=== PATIENT | female | born 1950 | race Caucasian/White ===

== ENCOUNTER 2018-12-20 14:49 | Emergency (ER) | payer OTHER ==
[~2018-12-20] VITALS: Ht 154.9 cm; Wt 58.1 kg
[2018-12-20 14:59] VITALS: BP_SYST 133
--- NOTE | 2018-12-20 15:11 | NUR ---
Patient to ER bed 5 to gown for evaluation. Side rails up. Report given to Keyona GUERRA.
--- NOTE | 2018-12-20 15:22 | NUR ---
Pt was bib by her daughter for high blood pressure and frequent urination. Pt daughter also reports that the pt attends [facility] for mental health but has not seen a [facility] NURSE for a while. No other complaints at the moment.
--- NOTE | 2018-12-20 15:24 | NUR ---
ER at bedside examining patient.
--- NOTE | 2018-12-20 15:45 | NUR ---
UA collected and sent to lab.
[2018-12-20 16:05] LABS: BILIRUBIN,URINE NEGATIVE (NEGATIVE); BLOOD, URINE NEGATIVE (NEGATIVE); CLARITY/URINE CLEAR (CLEAR); COLOR,URINE YELLOW (YELLOW); GLUCOSE,URINE NEGATIVE (NEGATIVE); KETONES,URINE NEGATIVE (NEGATIVE); LEUKOCYTE ESTERASE ,URINE TRACE (NEGATIVE); NITRITE, URINE NEGATIVE (NEGATIVE); PROTEIN URINE NEGATIVE (NEGATIVE); UROBILINOGEN,URINE 0.2 (0.2-1.0)
[2018-12-20 16:06] LABS: BASOPHILS % (AUTO) 0.1 % (0.0-2.0); EOSINOPHILS % (AUTO) 0.9 % (0.0-4.0); HEMATOCRIT 31.1 % (36-48); HEMOGLOBIN 10.2 g/dL (12.0-16.0); LYMPHOCYTES # (AUTO) 1.3 K/uL (1.0-5.5); LYMPHOCYTES % (AUTO) 36.4 % (20.5-51.5); MEAN CORPUSCULAR HEMOGLOBIN 30 pg (27-31); MEAN CORPUSCULAR HGB CONC 33 % (32-36); MEAN CORPUSCULAR VOLUME 92 fL (79.0-98.0); MONOCYTES # (AUTO) 0.3 K/uL (0.0-1.0); MONOCYTES % (AUTO) 7.9 % (1.7-9.3); NEUTROPHILS # (AUTO) 1.9 K/uL (1.8-7.7); NEUTROPHILS % (AUTO) 54.7 % (40.0-70.0); PLATELET COUNT (AUTO) 177 K/uL (130-430); RED BLOOD CELL COUNT(AUTO) 3.38 MIL/uL (4.2-6.2); RED CELL DISTRIBUTION WIDTH 15.1 % (9.0-15.0); WHITE BLOOD COUNT (AUTO) 3.6 K/uL (4.8-10.8)
[2018-12-20 16:15] LABS: BACTERIA,URINE FEW /HPF (None Seen); RBC,URINE NONE SEEN /HPF (0-3)
[2018-12-20 16:16] LABS: CALCIUM 8.7 mg/dL (8.4-11.0); CREATININE 0.56 mg/dL (0.55-1.30); POTASSIUM 3.7 mmol/L (3.5-5.1)
[2018-12-20 16:16] LABS: MUCUS,URINE None Seen /LPF (None Seen)
[2018-12-20 16:21] LABS: ALBUMIN 3.1 g/dL (3.4-4.8); TOTAL BILIRUBIN 0.3 mg/dL (0.0-1.0)
--- NOTE | 2018-12-20 16:30 | NUR ---
pt is resting comfortable. Has no complaints at the moment.
[2018-12-20 17:03] VITALS: BP_SYST 133
--- NOTE | 2018-12-20 17:03 | NUR ---
Patient given written and verbal discharge instructions and verbalizes understanding. ER MD Brown discussed with patient the results and treatment provided. Patient in stable condition. ID arm band removed. Rx of Macrobid given. Patient educated on pain management and to follow up with PMD in 2-3 days. Pain Scale 0/10 Opportunity for questions provided and answered. Medication side effect fact sheet provided.
== END 2018-12-20 17:03 | disposition home or self-care (01) ==
LOC: SED 14:49
DX: N39.0 Urinary tract infection, site not specified (principal); F41.9 Anxiety disorder, unspecified; F32.9 Major depressive disorder, single episode, unspecified; F03.90 Unspecified dementia, unspecified severity, without behavioral disturbance, psychotic disturbance, mood disturbance, and anxiety; Z88.0 Allergy status to penicillin
CPT/HCPCS: 36415; 71045; 80053; 81000-TC; 82550-TC; 83880; 84484; 85025; 87086; 93005; 99284

== ENCOUNTER 2018-12-31 19:32 | Emergency (ER) | payer OTHER ==
[~2018-12-31] VITALS: Ht 154.9 cm; Wt 56.7 kg
[2018-12-31 19:38] VITALS: BP_SYST 153
[2018-12-31 20:10] LABS: EOSINOPHILS # (AUTO) 0.1 K/uL (0.0-0.4); LYMPHOCYTES # (AUTO) 1.4 K/uL (1.0-5.5); MONOCYTES # (AUTO) 0.3 K/uL (0.0-1.0); WHITE BLOOD COUNT (AUTO) 4.3 K/uL (4.8-10.8)
[2018-12-31 20:15] LABS: BASOPHILS % (AUTO) 0.5 % (0.0-2.0); EOSINOPHILS % (AUTO) 1.6 % (0.0-4.0); HEMATOCRIT 34.6 % (36-48); HEMOGLOBIN 11.6 g/dL (12.0-16.0); LYMPHOCYTES % (AUTO) 33.2 % (20.5-51.5); MEAN CORPUSCULAR HEMOGLOBIN 31 pg (27-31); MEAN CORPUSCULAR HGB CONC 34 % (32-36); MEAN CORPUSCULAR VOLUME 92 fL (79.0-98.0); MONOCYTES % (AUTO) 7.2 % (1.7-9.3); NEUTROPHILS # (AUTO) 2.5 K/uL (1.8-7.7); NEUTROPHILS % (AUTO) 57.5 % (40.0-70.0); PLATELET COUNT (AUTO) 213 K/uL (130-430); RED BLOOD CELL COUNT(AUTO) 3.77 MIL/uL (4.2-6.2)
[2018-12-31 20:16] LABS: ANION GAP 6 (5-15); CALCIUM 9.1 mg/dL (8.4-11.0); CHLORIDE 105 mmol/L (98-107); CREATININE 0.58 mg/dL (0.55-1.30); GLUCOSE 97 mg/dL (70-99); SODIUM SERUM 143 mmol/L (136-145); UREA NITROGEN, BLOOD 12 mg/dL (8-21)
[2018-12-31 20:24] LABS: ALANINE AMINOTRANSFERASE 12 U/L (12-78); ALBUMIN 3.1 g/dL (3.4-4.8); ASPARTATE AMINOTRANSFERASE 12 U/L (10-37); TOTAL BILIRUBIN 0.3 mg/dL (0.0-1.0)
[2018-12-31 20:32] LABS: GFR AFRICAN AMERICAN 133 mL/min (>90)
[2018-12-31] MEDS ORDERED: RISP2TAB5 PO (20:46)
[2018-12-31 20:49] LABS: BILIRUBIN,URINE NEGATIVE (NEGATIVE); BLOOD, URINE NEGATIVE (NEGATIVE); CLARITY/URINE CLEAR (CLEAR); COLOR,URINE YELLOW (YELLOW); GLUCOSE,URINE NEGATIVE (NEGATIVE); KETONES,URINE NEGATIVE (NEGATIVE); LEUKOCYTE ESTERASE ,URINE TRACE (NEGATIVE); NITRITE, URINE NEGATIVE (NEGATIVE); PROTEIN URINE NEGATIVE (NEGATIVE); UROBILINOGEN,URINE 0.2 (0.2-1.0)
[2018-12-31 21:02] LABS: BACTERIA,URINE FEW /HPF (None Seen); RBC,URINE 0-3 /HPF (0-3)
[2018-12-31 21:03] LABS: MUCUS,URINE None Seen /LPF (None Seen)
[2018-12-31] MEDS ORDERED: CIPROFLOXACIN LACT 400 MG/D5W 200 ML IV ONE (21:15)
[2018-12-31] MEDS ORDERED: NACL 0.9% 1,000 ML IV ONE (21:15)
[2018-12-31 23:38] VITALS: BP_SYST 136
== END 2018-12-31 23:34 | disposition short-term general hospital (02) ==
LOC: SED 19:32
DX: R41.82 Altered mental status, unspecified (principal); F41.9 Anxiety disorder, unspecified; I10 Essential (primary) hypertension; F32.9 Major depressive disorder, single episode, unspecified; F03.90 Unspecified dementia, unspecified severity, without behavioral disturbance, psychotic disturbance, mood disturbance, and anxiety; Z88.0 Allergy status to penicillin
CPT/HCPCS: 36415; 70450; 71045; 80053; 81000; 82550; 83605; 84484; 85025; 87040; 87086; 93005; 96365; 99285; J0744; J7030

== ENCOUNTER 2020-02-29 16:25 | Inpatient (IN) | payer OTHER, SELFPAY ==
[~2020-02-29] VITALS: Ht 162.6 cm; Wt 70.8 kg
[2020-02-29 16:25] VITALS: BP_SYST 105
[~2020-02-29 16:25] MED LIST: RISP2TAB5 PO
--- NOTE | 2020-02-29 16:25 | NUR ---
Patient to ER bed 4 to gown for evaluation. Side rails up.
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
--- NOTE | 2020-02-29 16:50 | NUR ---
ER at bedside examining patient.
[2020-02-29] MEDS ORDERED: NS 500 ML IV ONE (17:00)
[2020-02-29 17:17] LABS: BASOPHILS # (AUTO) 0.1 K/uL (0.0-0.2); BASOPHILS % (AUTO) 1.4 % (0.0-2.0); EOSINOPHILS % (AUTO) 0.6 % (0.0-4.0); HEMATOCRIT 36.7 % (36-48); LYMPHOCYTES # (AUTO) 0.8 K/uL (1.0-5.5); LYMPHOCYTES % (AUTO) 15.9 % (20.5-51.5); MEAN CORPUSCULAR HEMOGLOBIN 29 pg (27-31); MEAN CORPUSCULAR HGB CONC 33 % (32-36); MEAN CORPUSCULAR VOLUME 88 fL (79.0-98.0); MONOCYTES # (AUTO) 0.3 K/uL (0.0-1.0); MONOCYTES % (AUTO) 5.1 % (1.7-9.3); PLATELET COUNT (AUTO) 195 K/uL (130-430); RED BLOOD CELL COUNT(AUTO) 4.19 MIL/uL (4.2-6.2); RED CELL DISTRIBUTION WIDTH 14.6 % (9.0-15.0); WHITE BLOOD COUNT (AUTO) 5.2 K/uL (4.8-10.8)
[2020-02-29 17:31] LABS: ALANINE AMINOTRANSFERASE 18 U/L (12-78); ALBUMIN 3.2 g/dL (3.4-4.8); ANION GAP 9 (5-15); ASPARTATE AMINOTRANSFERASE 18 U/L (10-37); CHLORIDE 105 mmol/L (98-107); CREATININE 1.07 mg/dL (0.55-1.30); GLUCOSE 124 mg/dL (70-99); POTASSIUM 3.6 mmol/L (3.5-5.1); SODIUM SERUM 141 mmol/L (136-145); TOTAL BILIRUBIN 0.4 mg/dL (0.0-1.0)
[2020-02-29 17:38] LABS: ALCOHOL, BLOOD < 3 mg/dL (<10); GFR AFRICAN AMERICAN 65 mL/min (>90)
[2020-02-29 17:39] LABS: ACETAMINOPHEN < 1 ug/mL (1-30)
[2020-02-29 17:45] LABS: UREA NITROGEN, BLOOD 25 mg/dL (8-21)
[2020-02-29] MEDS ORDERED: LORazepam 2 MG/ML VIAL IVP ONE (17:45)
[2020-02-29] MEDS ORDERED: LORazepam 2 MG/ML VIAL IM ONE (17:45)
--- NOTE | 2020-02-29 17:45 | NUR ---
Pt given Ativan 2mg, resting in gurney VSS, will continue to monitor.
--- NOTE | 2020-02-29 18:47 | NUR ---
[place] [facility] [place] no distress noted VSS
--- NOTE | 2020-02-29 19:08 | NUR ---
Patient will be admitted to care of Dr Vaughan. . Admitted to M/S unit. Will go to room 104B. Belongings list completed. Complete and up to date summary report printed. SBAR report to be given at bedside with opportunity for questions.
--- NOTE | 2020-02-29 19:10 | NUR ---
ADMISSION: The patient, JOYCE HODGES, 69 y/o, F admitted by CHRISTIANO ANTONIO MD, WITH THE DIAGNOSIS OF ENCEPHALOPATHY TO ROOM 104 B . PRIMARY RN AT BEDSIDE .
[2020-02-29 19:26] LABS: BILIRUBIN,URINE NEGATIVE (NEGATIVE); BLOOD, URINE NEGATIVE (NEGATIVE); CLARITY/URINE CLEAR (CLEAR); COLOR,URINE YELLOW (YELLOW); GLUCOSE,URINE NEGATIVE (NEGATIVE); KETONES,URINE NEGATIVE (NEGATIVE); LEUKOCYTE ESTERASE ,URINE NEGATIVE (NEGATIVE); NITRITE, URINE NEGATIVE (NEGATIVE); PH,URINE 7.5 (5.0-8.0); PROTEIN URINE NEGATIVE (NEGATIVE)
[2020-02-29 19:30] VITALS: BP_SYST 149
[2020-02-29 19:33] LABS: BARBITURATE, URINE NEGATIVE (NEG <=200); BENZODIAZEPINE, URINE POSITIVE (NEG <=150); CANNABINOID, URINE NEGATIVE (NEG <=50); COCAINE, URINE NEGATIVE (NEG <=150); METHAMPHETAMINES SCREEN,URINE NEGATIVE (NEG <=500); OPIATE, URINE NEGATIVE (NEG <=100); PHENCYCLIDINE SCREEN,URINE NEGATIVE (NEG <=25); UR TRICYCLIC ANTIDEPRESSANTS NEGATIVE (NEG <=300); URINE AMPHETAMINE NEGATIVE (NEG <=500); URINE METHADONE NEGATIVE (NEG <=200); URINE OXYCODONE SCREEN NEGATIVE (NEG <=100); URINE PROPOXYPHENE SCREEN NEGATIVE (NEG <=300)
[2020-02-29 20:00] VITALS: BP_SYST 149
[2020-02-29] MEDS: D5/0.45 NS 1,000 ML IV SCH (20:35)
--- NOTE | 2020-02-29 20:35 | NUR ---
RN ROUNDS PT RESTING IN BED, CHADIAN SPEAKING ONLY. BREATHING EVEN AND UNLABORED TO ROOM AIR. O2 SAT 95%. NO S/S OF RESPIRATORY DISTRESS NOTED. IV ON RIGHT HAND 22G INTACT, IVF RUNNING ORDERED RATE. NO SIGNS OF INFILTRATION NOTED. NO S/S OF AGITATION NOTED AT THIS TIME. CALL LIGHT WITHIN REACH. SIDE RAILS UP X3. CLOSE TO NURSING STATION. SAFETY AND FALL PRECAUTIONS ARE IN PLACE. WILL CONTINUE TO MONITOR.
--- NOTE | 2020-02-29 21:28 | NUR ---
CONSULT REASON FOR CONSULT: PSYCHOSIS PERSON I SPOKE WITH: RADHA CONSULTING PHYSICIAN: DR. BARRON UPPER CUTTER MACHINE PHONE NUMBER: [phone] ORDERING PHYSICIAN: DR. ANTONIO FACESHEET WAS FAXED OVER AT [phone]
--- NOTE | 2020-02-29 23:05 | NUR ---
RESTING PT RESTING IN BED. CHEST RISE AND FALL SYMMETRICAL. IVF RUNNING ORDERED RATE. PT TOLERATING WELL. NO S//S OF ACUTE DISTRESS NOTED. BED ALARM ON, LOCKED IN LOWEST POSITION. CALL LIGHT WITHIN REACH. SAFETY AND FALL PRECAUTIONS MAINTAINED. WILL MONITOR.
[2020-03-01] VITALS (8 sets, daily range): BP systolic 80–143
--- NOTE | 2020-03-01 01:32 | NUR ---
RN ROUNDS PT SLEEPING. BREATHING EVEN AND UNLABORED TO ROOM AIR. IV ON RIGHT HAND 22G INTACT, IVF RUNNING ORDERED RATE. NO S/S OF AGITATION NOTED. CALL LIGHT WITHIN REACH. SIDE RAILS UP X3. CLOSE TO NURSING STATION. SAFETY AND FALL PRECAUTIONS ARE IN PLACE. WILL CONTINUE TO MONITOR.
[2020-03-01 06:38] LABS: BASOPHILS % (AUTO) 0.1 % (0.0-2.0); EOSINOPHILS # (AUTO) 0.1 K/uL (0.0-0.4); EOSINOPHILS % (AUTO) 1.3 % (0.0-4.0); HEMATOCRIT 36.9 % (36-48); HEMOGLOBIN 12.1 g/dL (12.0-16.0); LYMPHOCYTES # (AUTO) 1.8 K/uL (1.0-5.5); LYMPHOCYTES % (AUTO) 40.5 % (20.5-51.5); MEAN CORPUSCULAR HEMOGLOBIN 29 pg (27-31); MEAN CORPUSCULAR HGB CONC 33 % (32-36); MEAN CORPUSCULAR VOLUME 88 fL (79.0-98.0); MONOCYTES # (AUTO) 0.3 K/uL (0.0-1.0); MONOCYTES % (AUTO) 6.5 % (1.7-9.3); NEUTROPHILS # (AUTO) 2.3 K/uL (1.8-7.7); NEUTROPHILS % (AUTO) 51.6 % (40.0-70.0); PLATELET COUNT (AUTO) 180 K/uL (130-430); RED BLOOD CELL COUNT(AUTO) 4.21 MIL/uL (4.2-6.2); RED CELL DISTRIBUTION WIDTH 15.2 % (9.0-15.0); WHITE BLOOD COUNT (AUTO) 4.5 K/uL (4.8-10.8)
--- NOTE | 2020-03-01 06:48 | NUR ---
CLOSING NOTES PT RESTING IN BED. BREATHING EVEN AND UNLABORED TO ROOM AIR. NO S/S OF RESPIRATORY DISTRESS NOTED. IV ON RIGHT HAND 22G INTACT, IVF RUNNING ORDERED RATE. NO SIGNS OF INFILTRATION NOTED. CALL LIGHT WITHIN REACH. SIDE RAILS UP X3. CLOSE TO NURSING STATION. SAFETY AND FALL PRECAUTIONS ARE IN PLACE. ALL NEEDS ARE MET THROUGHOUT SHIFT. WILL CONTINUE TO MONITOR UNTIL ENDORSE TO DAY SHIFT RN.
[2020-03-01 06:59] LABS: CALCIUM 8.4 mg/dL (8.4-11.0); CREATININE 0.66 mg/dL (0.55-1.30); POTASSIUM 3.9 mmol/L (3.5-5.1)
--- NOTE | 2020-03-01 07:26 | NUR ---
OPENING NOTE Patient resting in the bed. No acute distress. Skin warm and dry to touch. IV intact to right hand, no redness, no swelling, no drainage. On D5 1/2NS at 50ml/hr, infusing well. Safety measure maintained. Call light within reached. Bed locked in low position, side rails up, bed alarm on. Will continue to monitor.
--- NOTE | 2020-03-01 09:40 | NUR ---
ROUND Patient resting in the bed. No acute distress. IV intact, IVF infusing well. Safety measure maintained. Call light within reached. Bed locked in low position, side rails up, bed alarm on. Continue to monitor.
--- NOTE | 2020-03-01 09:58 | NUR ---
Nutrition Update Solis Scale 18 noted. Pt admitted for encephalopathy. Diet: 2 gm Na BMI: 27 kg/m2 RD to follow per nutrition care standards.
--- NOTE | 2020-03-01 11:20 | NUR ---
BEDPAN Assisted to use bedpan, void freely, no hematuria/dysuria. Patient also had BM at this time. Perineal and royal-rectal care provided. Safety measure maintained. Call light within reached. Bed locked in low position, side rails up, bed alarm on. Continue to monitor.
--- NOTE | 2020-03-01 15:08 | NUR ---
Dietitian Recommendations * Recommend continuing 2 gm Na diet * Encourage increase PO intakes LP, RD Please refer to Nutrition Assessment for details. Addendum: 03/01/20 at [address] Amended: Links added.
--- NOTE | 2020-03-01 15:35 | NUR ---
SEEN AND EXAMINED BY MARISELA MANN WITH ORDER RECEIVED.
[2020-03-01] MEDS ORDERED: risperiDONE 1 MG TABLET (RisperDAL) PO ONE (15:45)
[2020-03-01] MEDS: LORazepam 2 MG/ML VIAL IVP PRN (15:47)
--- NOTE | 2020-03-01 15:47 | NUR ---
AGITATION Patient pulled IV out and getting out of the bed and yelling want to go home. New IV inserted to right wrist, gauge 22 with good blood return. Flushed with NS 5ml. Ativan 1mg IVP given as ordered. Safety measure maintained. Bed locked in low position, side rials up, bed alarm on. Call light within reached. Continue to monitor.
[2020-03-01] MEDS ORDERED: HALOPERIDOL LACTATE 5 MG/ML VIAL IM PRN (16:00)
--- NOTE | 2020-03-01 16:05 | NUR ---
UPDATED THE CONDITION OF THE PATIENT Received call from patient's , Jeovany. Per Jeovany, patient did not take medication at home for days that make her more confused. Jeovany provided the list of home medication with the name of medication, dose, route and frequency for patient, updated in the computer. Informed to Jeovany, Agitation behavior of the patient and with the order of bilateral soft restraint, verbally understanding.
--- NOTE | 2020-03-01 16:07 | NUR ---
CONSULTATION PAGED REASON FOR CONSULTATION:CONFUSED WAS CONSULT CALLED?Y PERSON WHO WAS NOTIFIED:NICHOLE CONSULTING PHYSICIAN:YOAN VARGAS COMPOSITION MIXER SPECIALTY:PSYCH COMPOSITION MIXER PHONE NUMBER:[phone] REQUESTING PHYSICIAN:CHRISTIANO BORJAS
--- NOTE | 2020-03-01 16:09 | NUR ---
CONSULTATION PAGED REASON FOR CONSULTATION:ALOC WAS CONSULT CALLED?Y PERSON WHO WAS NOTIFIED:TEXT MESSAGED NATHALY SOLANO CONSULTING PHYSICIAN:ZARIA SOLANO HEALTHCARE SPECIALIST SPECIALTY:NEURO HEALTHCARE SPECIALIST PHONE NUMBER:[phone] REQUESTING PHYSICIAN:CHRISTIANO BORJAS
[2020-03-01] MEDS: D5/0.45 NS 1,000 ML IV SCH (16:25)
[2020-03-01] MEDS ORDERED: RIVA1PAT3 TP (16:29)
[2020-03-01] MEDS ORDERED: BENZ1TAB76 PO (16:29)
[2020-03-01] MEDS ORDERED: FAMO20TA8 PO (16:29)
[2020-03-01] MEDS ORDERED: MEMA10TA PO (16:29)
[2020-03-01] MEDS ORDERED: LIP10 PO (16:29)
[2020-03-01] MEDS ORDERED: LISI-209 PO (16:29)
--- NOTE | 2020-03-01 16:29 | NUR ---
Patient is sleepy but arousable kazakh speaking answer simple question verbalizing she wants to go home. frequent monitoring due to low blood pressure.
[2020-03-01] MEDS ORDERED: NACL 0.9% 1,000 ML IV ONE (16:30)
--- NOTE | 2020-03-01 18:50 | NUR ---
CLOSING NOTE Patient resting in the bed. No acute distress. Skin warm and dry to touch. IV intact to right wrist, no redness, no swelling, no drainage. On D5 1/2NS at 50ml/hr, infusing well. Bilateral soft wrist restraint in placed. Able to move fingers and hands without problem. All needs met. Safety measure maintained. Call light within reached. Bed locked in low position, side rails up, bed alarm on. Will endorse to night nurse.
--- NOTE | 2020-03-01 19:10 | NUR ---
OPENING NOTE PATIENT AWAKE, ESTONIAN SPEAKING. AOX2, [place], BILINGUAL BRANCH MANAGER HELP WITH THE TRANSLATION. CONFUSION IS NOTED. TRYING TO GET OUT OF THE BED. NO SIGNS OF RESPIRATORY DISTRESS NOTED. ON ROOM AIR TOLERATED WELL. VITAL SIGNS TAKEN AND WILL BE RECORDED. DENIES PAIN AND DISCOMFORT. BREATHING EVEN AND UNLABORED. ON BILATERAL SOFT WRIST RESTRAINTS, NO INJURY NOTED. IVF INFUSING WELL. PATIENT ROOM NEXT TO NURSING STATION. BED LOCKED AND IN LOWEST POSITION. BED ALARM ON. SAFETY PRECAUTIONS IN PLACE. WILL CONTINUE TO MONITOR PATIENT.
--- NOTE | 2020-03-01 19:43 | NUR ---
Initial note: received report from adrian GUERRA. Patient is awake in bed watching TV. No acute distress. Tolerating 2L NC. Respirations even, unlabored. IV fluids infusing as ordered with no infiltration noted. Bilateral soft wrist restraints in place, skin and circulation WNL. Safety, fall precautions in place. Call light with patient. Will continue with plan of care. Addendum: 03/02/20 at 2225 by Abhinav Apodaca RN disregard note, wrong date
--- NOTE | 2020-03-01 21:03 | NUR ---
RN ROUNDS PATIENT AWAKE, NO SIGNS OF RESPIRATORY DISTRESS NOTED. DENIES PAIN AND DISCOMFORT. ON 1L OF OXYGEN VIA NASAL CANULA, TOLERATING WELL. IVF INFUSING WELL. ON BILATERAL WRIST RESTRAINTS, NO INJURY NOTED. SAFETY PRECAUTIONS IN PLACE. WILL CONTINUE TO MONITOR PATIENT.
--- NOTE | 2020-03-01 21:55 | NUR ---
SPOKE WITH DR. PACO GARZA MADE AWARE OF PATIENTS' MEDICATION RECONCILIATION. ALL MEDICATION READ BACK AND CONFIRMED, VERBALIZED TO CONTINUE HOME MEDICATION
--- NOTE | 2020-03-01 23:25 | NUR ---
RN ROUNDS PATIENT ASLEEP, NO SIGNS OF RESPIRATORY DISTRESS NOTED. DENIES PAIN AND DISCOMFORT. ON 1L OF OXYGEN VIA NASAL CANULA, TOLERATING WELL. IVF INFUSING WELL. ON BILATERAL WRIST RESTRAINTS, NO INJURY NOTED. SAFETY PRECAUTIONS IN PLACE. WILL CONTINUE TO MONITOR PATIENT.
[2020-03-02] VITALS: BP_SYST 143
--- NOTE | 2020-03-02 | NUR ---
VITAL SIGNS/ELIAZAR CARE ELIAZAR CARE DONE WITH HELP OF CHI OVERTON, VITAL SIGNS TAKEN AND RECORDED. NO SIGNS OF RESPIRATORY DISTRESS NOTED. ON 1L OF OXYGEN VIA NASAL CANULA, TOLERATING WELL. IVF INFUSING WELL. ON BILATERAL WRIST RESTRAINTS, NO INJURY NOTED. NEEDS ATTENDED. SAFETY PRECAUTIONS IN PLACE. WILL CONTINUE TO MONITOR PATIENT.
--- NOTE | 2020-03-02 02:40 | NUR ---
RN ROUNDS PATIENT AWAKE, YELLING, TALKING TO HER SELF. NO SIGNS OF RESPIRATORY DISTRESS AND DISCOMFORT NOTED. BREATHING EVEN AND UNLABORED ON 1L OF OXYGEN VIA NASAL CANULA, TOLERATING WELL. ON BILATERAL SOFT WRIST RESTRAINTS, NO INJURY NOTED. CALL LIGHT WITHIN REACH. SAFETY PRECAUTIONS IN PLACE. WILL CONTINUE TO MONITOR PATIENT
[2020-03-02] MEDS: D5/0.45 NS 1,000 ML IV SCH ×2 (04:05→20:36)
[2020-03-02] MEDS: LORazepam 2 MG/ML VIAL IVP PRN (04:44)
--- NOTE | 2020-03-02 04:45 | NUR ---
AGITATION PATIENT YELLING, AND TRYING TO GET OUT OF BED. PRN MEDICATION FOR AGITATION GIVEN AT THIS TIME. PATIENT WAS EDUCATED ON MEDICATION THAT WAS GIVEN FOR ITS PURPOSE, SIDE EFFECT AND BENEFITS. PATIENT UNABLE TO VERBALIZED UNDERSTANDING, PATIENT IS CONFUSED AND TRYING TO REMOVE RESTRAINTS AND IV. PATIENT ON BILATERAL SOFT WRIST RESTRAINTS, NO INJURY NOTED. SAFETY PRECAUTIONS IN PLACE. WILL CONTINUE TO MONITOR PATIENT
--- NOTE | 2020-03-02 06:31 | NUR ---
CLOSING NOTE PATIENT ASLEEP AT THIS TIME. NO SIGNS OF RESPIRATORY DISTRESS AND DISCOMFORT NOTED. BREATHING EVEN AND UNLABORED. ON 1L OF OXYGEN VIA NASAL CANULA, TOLERATING WELL. IVF INFUSING WELL, PATENCY NOTED. ON BILATERAL SOFT WRIST RESTRAINTS, NO INJURY NOTED. BED LOCKED AND IN LOWEST POSITION. BED ALARM ON. SAFETY PRECAUTIONS IN PLACE. ALL NEEDS MET THROUGHOUT THE SHIFT. WILL CONTINUE TO MONITOR UNTIL ENDORSE TO ONCOMING SHIFT NURSE FOR CONTINUITY OF CARE.
[2020-03-02 07:04] LABS: CALCIUM 8.1 mg/dL (8.4-11.0); CREATININE 0.58 mg/dL (0.55-1.30)
--- NOTE | 2020-03-02 07:10 | NUR ---
OPENING NOTE RECEIVED BEDSIDE SBAR FROM NIGHT RN, PATIENT IN BED, EYES CLOSED, BED IN LOW AND LOCKED POSITION. CALL LIGHT WITHIN REACH, BED ALARM ON.
[2020-03-02 07:59] VITALS: BP_SYST 129
--- NOTE | 2020-03-02 08:00 | NUR ---
NURSE NOTE OBTAINED VS, PATIENT IN BED, RESPIRATIONS EVEN, NON LABORED, BED IN LOW AND LOCKED POSITION, CALL LIGHT WITHIN REACH, BED ALARM ON
[2020-03-02] MEDS: BENZTROPINE MESYLATE 1 MG TABLET PO SCH ×2 (08:54→20:31)
[2020-03-02] MEDS: FAMOTIDINE 20 MG TABLET PO SCH (08:54)
[2020-03-02] MEDS: MEMANTINE HCL 5 MG TABLET PO SCH ×2 (08:54→20:31)
[2020-03-02] MEDS: lisinopriL 5 MG TABLET PO SCH (08:55)
[2020-03-02] MEDS: risperiDONE 1 MG TABLET (RisperDAL) PO SCH (08:55)
[2020-03-02] MEDS ORDERED: RIVASTIGMINE 9.5 MG/24 HR PATCH.TD24 TP SCH (09:00)
--- NOTE | 2020-03-02 09:30 | NUR ---
NURSE NOTE PATIENT INCONTINENT OF BLADDER, PROVIDED ELIAZAR CARE, CHANGED LINENS, BED IN LOW AND LOCKED POSITION, CALL LIGHT WITHIN REACH, BED ALARM ON, RESTRAINTS ON, NO SIGNS OF INJURY, CAPILLARY REFILL LESS THAN 3 SECONDS
--- NOTE | 2020-03-02 09:50 | NUR ---
NURSE NOTE PAGED DR ANTONIO REGARDING LOW POTASSIUM 3.0
--- NOTE | 2020-03-02 09:51 | NUR ---
NURSE NOTE SPOKE WITH PHARMACY, EXELON PATCH NOT CARRIED IN PHARMACY, WILL INFORM DR ANTONIO
--- NOTE | 2020-03-02 10:40 | NUR ---
NURSE NOTE INFORMED RATOPRINTER JONG THAT EXELON IS NOT CARRIED IN THE PHARMACY, OK TO DC, INFORMED REGARDING POTASSIUM OF 3.0, WILL PLACE NEW ORDERS
[2020-03-02] MEDS ORDERED: POTASSIUM CHLORIDE 20 MEQ TAB.PRT.SR PO ONE (10:45)
--- NOTE | 2020-03-02 11:30 | NUR ---
NURSE NOTE PATIENT IN BED, RESPIRATIONS EVEN, NON LABORED, BED IN LOW AND LOCKED POSITION, CALL LIGHT WITHIN REACH, BED ALARM ON. ADMINISTERED MEDICATION, PATIENT TOLERATED WELL, NO SIGNS OF DISTRESS NOTED
[2020-03-02 12:52] VITALS: BP_SYST 104
--- NOTE | 2020-03-02 13:43 | NUR ---
NURSE NOTE PATIENT IN BED, EYES CLOSED, RESPIRATIONS EVEN, NON LABORED, BED IN LOW AND LOCKED POSITION, CALL LIGHT WITHIN REACH,
--- NOTE | 2020-03-02 15:23 | NUR ---
md rounds Dr. Weeks bedside examining patient
[2020-03-02 16:00] VITALS: BP_SYST 123
--- NOTE | 2020-03-02 16:26 | NUR ---
nurse note assisted patient with phone call to , bed in low and locked position, call light within reach, bed alarm on
--- NOTE | 2020-03-02 16:45 | NUR ---
NURSE NOTE PATIENT INCONTINENT OF BLADDER, PROVIDED ELIAZAR CARE, CHANGED LINENS, REPOSITIONED PATIENT, DENIES ANY PAIN OR DISCOMFORT
--- NOTE | 2020-03-02 19:15 | NUR ---
closing note provided sbar to night RN, patient in bed, respirations even, non labored, bed in low and locked position, call light within reach, endorsed urine specimen collection to night RN Addendum: 03/02/20 at 1917 by Keenan Rodrigues RN above urine culture charted in error, entered on wrong patient
--- NOTE | 2020-03-02 19:43 | NUR ---
Initial note: received report from adrian RN. Patient is awake in bed watching TV. No acute distress. Tolerating 2L NC. Respirations even, unlabored. IV fluids infusing as ordered with no infiltration noted. Bilateral soft wrist restraints in place, skin and circulation WNL. Safety, fall precautions in place. Call light with patient. Will continue with plan of care.
[2020-03-02 20:00] VITALS: BP_SYST 111
[2020-03-02] MEDS: ATORVASTATIN 10 MG TABLET PO SCH (20:31)
--- NOTE | 2020-03-02 22:21 | NUR ---
Rounds: Patient is awake in bed, watching TV. No acute distress. Even and unlabored breathing on 2L NC. IV fluids infusing well. Call light with patient. Will continue to monitor.
--- NOTE | 2020-03-02 22:32 | NUR ---
Restraints off: Patient has been calm, cooperative with medical care. Bilateral soft wrist restraints removed. Skin and circulation WNL. Will continue monitoring.
[2020-03-03] VITALS: BP_SYST 101
--- NOTE | 2020-03-03 01:09 | NUR ---
Rounds: Patient is asleep. No acute distress. Respirations are even, unlabored. Tolerating 2L NC. IV fluids infusing well. Call light with patient. Will continue to monitor.
--- NOTE | 2020-03-03 04:04 | NUR ---
Rounds: Patient is asleep, lying in bed. No acute distress. Even and unlabored breathing on 2L NC. IV fluids infusing well. No infiltration to IV site. Call light with patient. Will continue monitoring.
--- NOTE | 2020-03-03 06:23 | NUR ---
Closing note: Patient is resting comfortably in bed. No acute distress. Tolerating 2L NC. Respirations are even, unlabored. IV fluids infusing well, no infiltration. All needs met. Safety, fall precautions in place. Will endorse care to dayshift RN.
[2020-03-03 06:58] LABS: BASOPHILS % (AUTO) 0.1 % (0.0-2.0); EOSINOPHILS # (AUTO) 0.1 K/uL (0.0-0.4); EOSINOPHILS % (AUTO) 1.6 % (0.0-4.0); HEMATOCRIT 36.7 % (36-48); HEMOGLOBIN 12.1 g/dL (12.0-16.0); LYMPHOCYTES # (AUTO) 1.8 K/uL (1.0-5.5); LYMPHOCYTES % (AUTO) 40.7 % (20.5-51.5); MEAN CORPUSCULAR HEMOGLOBIN 29 pg (27-31); MEAN CORPUSCULAR HGB CONC 33 % (32-36); MEAN CORPUSCULAR VOLUME 89 fL (79.0-98.0); MONOCYTES # (AUTO) 0.3 K/uL (0.0-1.0); MONOCYTES % (AUTO) 6.9 % (1.7-9.3); NEUTROPHILS # (AUTO) 2.2 K/uL (1.8-7.7); NEUTROPHILS % (AUTO) 50.7 % (40.0-70.0); PLATELET COUNT (AUTO) 183 K/uL (130-430); RED BLOOD CELL COUNT(AUTO) 4.14 MIL/uL (4.2-6.2); RED CELL DISTRIBUTION WIDTH 14.9 % (9.0-15.0); WHITE BLOOD COUNT (AUTO) 4.4 K/uL (4.8-10.8)
[2020-03-03 06:59] LABS: CALCIUM 8.2 mg/dL (8.4-11.0); CREATININE 0.66 mg/dL (0.55-1.30); POTASSIUM 3.9 mmol/L (3.5-5.1)
--- NOTE | 2020-03-03 07:30 | NUR ---
PT AWAKE, NONLABORED BREATHING NOTED, RECEIVING O2 AT 2LPM VIA NASAL CANNULA, TOLERATING WELL. IV LINE INTACT AND PATENT, NO SIGNS OF INFILTRATION NOTED. NO RESTRAINTS NOTED. NO ACUTE DISTRESS NOTED. ALL NEEDS MET. CALL LIGHT IN REACH. FALL AND ASPIRATION PRECAUTIONS IN PLACE. CONTINUE TO MONITOR.
[2020-03-03 08:00] VITALS: BP_SYST 113
[2020-03-03] MEDS: FAMOTIDINE 20 MG TABLET PO SCH (09:46)
[2020-03-03] MEDS: risperiDONE 1 MG TABLET (RisperDAL) PO SCH (09:47)
[2020-03-03] MEDS: BENZTROPINE MESYLATE 1 MG TABLET PO SCH ×2 (09:47→21:48)
[2020-03-03] MEDS: lisinopriL 5 MG TABLET PO SCH (09:47)
[2020-03-03] MEDS: MEMANTINE HCL 5 MG TABLET PO SCH ×2 (09:48→21:47)
--- NOTE | 2020-03-03 09:50 | NUR ---
ROUTINE MEDS ADMINISTERED ORDERED PER MD, EDUCATION GIVEN, TOLERATED WELL. CONTINUE TO MONITOR.
[2020-03-03 11:35] VITALS: BP_SYST 125
--- NOTE | 2020-03-03 11:46 | NUR ---
ROUNDS PT AWAKE AND ALERT. PULLED OUT IV LINE, WILL RE-INSERT.
--- NOTE | 2020-03-03 13:45 | NUR ---
IV RE-INSERTION: PT PULLED IV LINE. Restarted on LEFT FOREARM. Successful after 1 attempt. Resumed current IVF of D5 1/2 NS and regulated @ 50ML per hour. Will observe for any signs of infiltration.
--- NOTE | 2020-03-03 13:51 | NUR ---
SPOKE TO DR. ANTONIO REGARDING LOW HEART RATE, NO DIZZINESS OR LETHARGY NOTED. NO NEW ORDERS RECEIVED.
[2020-03-03 15:12] VITALS: BP_SYST 130
[2020-03-03] MEDS: D5/0.45 NS 1,000 ML IV SCH (16:34)
--- NOTE | 2020-03-03 16:37 | NUR ---
IV FLUIDS ADMINISTERED ORDERED PER MD, EDUCATION GIVEN, TOLERATED WELL. CONTINUE TO MONITOR.
--- NOTE | 2020-03-03 17:02 | NUR ---
patient stated wanting to speak to , called from face sheet and transferred call from station, patient speaking to at this time.
--- NOTE | 2020-03-03 18:42 | NUR ---
CLOSING NOTES PT EATING DINNER, WATCHING TV IN BED, NONLABORED BREATHING NOTED ON ROOM AIR, TOLERATING WELL. IV LINE INTACT AND PATENT, NO SIGNS OF INFILTRATION NOTED, FLUIDS RUNNING ORDERED PER MD. PT CLEAN AND DRY. NO ACUTE DISTRESS NOTED. ALL NEEDS MET. CALL LIGHT IN REACH. FALL AND ASPIRATION PRECAUTIONS IN PLACE. WILL ENDORSE TO NOC NURSE.
--- NOTE | 2020-03-03 19:25 | NUR ---
Opening note: Received patient awake, resting in bed, no s/sx of distress and watching t.v. Non labored breathing on room air. Patient has IVF infusing via IV to LFA. Bed is locked in lowest position, and bed alarm on. Updated board and reviewed plan of care.
[2020-03-03 20:00] VITALS: BP_SYST 139
--- NOTE | 2020-03-03 20:05 | NUR ---
patient care Patient voided, requested to be changed. She was provided with royal-care, clean pad.
[2020-03-03] MEDS: ATORVASTATIN 10 MG TABLET PO SCH (21:48)
--- NOTE | 2020-03-03 21:50 | NUR ---
Meds Due meds given and patient took with apple juice. She is incontinent and requested to be cleaned and was provided w/ royal care and clean pad. Safety precautions maintained and call light w/in reach.
[2020-03-04 00:20] VITALS: BP_SYST 120
--- NOTE | 2020-03-04 00:20 | NUR ---
rounds, V/S Patient was momentarily awakened for V/S, which are stable and she denies pain. She wants t.v off and lights low. Safety precautions maintained and call light w/in reach.
--- NOTE | 2020-03-04 02:06 | NUR ---
OOB, void Patient is OOB for use of restroom; She voided; missed hat, unable to measure. She was provided with [facility] bath, new gown. Resting in bed, no s/sx of distress. Safety precautions maintained and call light w/in reach.
--- NOTE | 2020-03-04 02:18 | NUR ---
sleeping Previous note entered in wrong chart. Patient is resting w/ eyes closed, no distress and non labored breathing. IVF infusing well; safety precautions maintained. will continue to monitor. Addendum: 03/04/20 at 0223 by Kelly Gallagher RN This entry was entered in wrong chart; patient did not get up out of bed.
--- NOTE | 2020-03-04 03:05 | NUR ---
awake, voided Patient requesting to be cleaned; she voided. Provided w/ royal-care, clean pad and assisted to reposition.
--- NOTE | 2020-03-04 04:26 | NUR ---
sleeping Patient sleeping, no sign of distress, non labored breathing. IVF infusing well, call light w/in reach.
--- NOTE | 2020-03-04 05:39 | NUR ---
awake, refused SCD's Patient reports she is tired of SCD's and wants them removed. Both SCD's removed, no further needs.
--- NOTE | 2020-03-04 07:00 | NUR ---
closing note Patient is resting in bed, w/eyes closed, easily aroused. She denies pain, no distress. IVF infusing via IV to LFA. Safety precautions maintained. Needs met throughout shift, will endorse care to day shift nurse.
[2020-03-04 08:00] VITALS: BP_SYST 141
--- NOTE | 2020-03-04 08:00 | NUR ---
Opening Notes Patient is awake, alert and oriented x2. Pt is noted with confusion. No resp distress noted. Breathing is even and unlabored at this time. Pt denies any pain at this time. Pt remains on bedrest, incontinent. Pt was cleaned, left dry and repositioned in bed. Pt was encouraged to eat breakfast, pt eats independently, set up needed. IV site on left FA, 22 gauge intact at this time. D5 1/2 NS @ 50 cc/hr infusing well at this time. All needs met. Safety and fall precautions in place. Bed in lowest position, alarm on, locked. Will continue to monitor.
[2020-03-04] MEDS: risperiDONE 1 MG TABLET (RisperDAL) PO SCH (08:23)
[2020-03-04] MEDS: MEMANTINE HCL 5 MG TABLET PO SCH ×2 (08:23→20:51)
[2020-03-04] MEDS: BENZTROPINE MESYLATE 1 MG TABLET PO SCH ×2 (08:24→20:51)
[2020-03-04] MEDS: FAMOTIDINE 20 MG TABLET PO SCH (08:24)
[2020-03-04] MEDS: lisinopriL 5 MG TABLET PO SCH (08:24)
--- NOTE | 2020-03-04 10:17 | NUR ---
Notes Patient is laying in bed, watching TV. No resp distress noted. Breathing is even and unlabored. Denies any pain at this time. Will continue to monitor.
--- NOTE | 2020-03-04 10:19 | NUR ---
Prototype Carpenter: DCPA and Social Work Interview BURIAL VAULT SETTER called the Rn to confirm pt. was Sp. speaking only. Indeed Rn stated pt. only speaks Sp. BURIAL VAULT SETTER called pts , Jeovany Dukes, . He was polite, but had trouble remembering some details. He helped confirm some data on the face sheet. He stated pts. PCP is a neurologist ([facility]) and she has an appt. on the . The office staff will call him two days prior to remind and confirm the apt. Re. support, stated he has a daughter that resides in [facility] ([phone]), a son that lives 10 min from him and another daughter who resides in [facility]. He stated he also has a caregiver that comes to his home 6 days a week. She transports pt. to her appointments. Pt. added he is a dialysis pt. and gets transportation from the [place]. BURIAL VAULT SETTER asked questions re. pts. medication. stated pt had been in and out of a home in [place] for Dementia for the past 6 months. It is for this reason that she had not been seen by her doctor to keep up with her prescriptions. stated when the medications were running low, he called the doctors office and they said they could not see her. He needed to contact the pts. neurologist. When he called the neurologist, they could not see pt. right away. There was a lag in time so pt. ended up running out of her medications. Pt. takes a total of 5 medications for various health issues including schizophrenia, anxiety and a patch for Dementia. In the past, pt. had seen the neurologist 1x per month then it was every 3 months, then it was every 6 months because she was doing well. When BURIAL VAULT SETTER asked him about his and if she is good about taking all of her medications, he stated, "When she gets in her little moods, which is rare, she will not take her meds. So we have to put them in her food and juice. " Addendum: 03/04/20 at 1127 by Hanna Hardy BURIAL VAULT SETTER Prototype Carpenter: follow up BURIAL VAULT SETTER called pts. daughter, Estrellita Dukes, because pts. was a poor historian. BURIAL VAULT SETTER asked pts.' daughter, Estrellita about pts. doctors. Pt. has a PCP, Gary Thompson, Neurologist is Dr. Grande and a Psychiatrist is Dr. Simmons. Her dad had a caregiver from the [place] who had been coming but had to quarantine due to Covid exposure. Daughter was able to secure another caregiver, who comes only 4 days a week for 3 hours a day. This caregiver is only for her dad not her mom. She stated her mom needs a lot of care. She gets violent, is a wanderer, at times refuses to eat and has been Dx. with Dementia. She is a yeller and can get very aggressive. She stated her mom needs a lot of care. Daughter also stated she use to live with her parents, but had to leave as it got to be too much caring for her mom. Many times the police have been called due to pts. violent tendencies. One of these incidents lead to an open APS case on pt. Daughter stated she had been working with a home auto body repair teacher, "Rogelio" (possibly Ruddy Lo, CSA [phone]) who found an Assisted Living, [facility] where there is a 3rd alliance party who helps with their care. Both her dad and pt. moved in, but her dad later moved out after a month stating he did not like the food. He returned to the mobile home. Re. her mom/pt. she has been hospitalized on a 5150 a few times. She has been at [facility] a couple of times. Once when she went to [facility] in [place] she was sent to [facility] where she was there on an extended 5150 (a workplace relations adviser was involved 5250 hold). It was at this time she was Dx. with Dementia. Daughter stated Ruddy is still looking for a faciltiy for pt. BURIAL VAULT SETTER shared info. w/ CM and concerns with pt. returning home and the need and care that pt. requires. Both BURIAL VAULT SETTER and CM feel it necessary for pt. to get another psyc. eval for gravely disabled". BURIAL VAULT SETTER also shared this info with Rn. asking if pt. can get another pscy eval for gravely disabled. BURIAL VAULT SETTER shared the reasons why and referred her to these notes. BURIAL VAULT SETTER will remain available as needed.
[2020-03-04 11:25] VITALS: BP_SYST 147
[2020-03-04] MEDS: D5/0.45 NS 1,000 ML IV SCH (12:00)
--- NOTE | 2020-03-04 12:20 | NUR ---
Notes/Ativan Patient is laying in bed, resting. Pt is still noted with confusion. Pt is refusing IVF. Per patient, "It makes me pee alot, I dont want it." Nurse informed charge nurse. IV site, saline lock for now. Will inform MD Vaughan. Patient is requesting to s/w , Jeovany. Nurse assisted patient to contact . Per , "Don't give any medical information to my daughter. Shes the reason my isnt home right now." Will follow up with Kareen WILSON. Patient became agitated and started yelling obscenities at the nurse in Bangladeshi. Nurse administered Ativan 1 mg IVP, tolerated well. No resp distress. Pt shows no pain at this time. Will continue to monitor.
[2020-03-04] MEDS: LORazepam 2 MG/ML VIAL IVP PRN (12:22)
--- NOTE | 2020-03-04 14:35 | NUR ---
Notes Patient is sleeping in bed at this time. No resp distress noted. Breathing is even and unlabored. Shows no signs of pain at this time. IV fluids on hold for now. No agitation at this time. Will continue to monitor.
--- NOTE | 2020-03-04 15:19 | NUR ---
CONSULTATION PAGED/CALLED Reason for Consultation: GRAVELY DISABLED Person Who was Notified: ELEUTERIO Consulting Physician: AMARI Autocad Draftsman Specialty: Ordering Physician: PACO
[2020-03-04 15:35] VITALS: BP_SYST 137
--- NOTE | 2020-03-04 16:09 | NUR ---
Farm Machinery Mechanic Notes/Psych transfer: DIRECTOR OF FOOD AND NUTRITION received a referral from nursing for patient to be discharged to [facility], pending psych eval. DIRECTOR OF FOOD AND NUTRITION phoned Ksenia from [facility] (p:[phone], f:[phone]) who stated they have available bed. Clinicals faxed pending LPS hold, covid test and d/c order; Dr. Taco de leon and Kareen WILSON RN informed. SS will follow up.
--- NOTE | 2020-03-04 16:40 | NUR ---
Notes/COVID VAMSHI Patient is laying in bed, resting at this time. No resp distress at this time. Denies any pain at this time. No agitation noted. Nurse performed COVID 19 VAMSHI test on patient, tolerated well. Sent to to lab at 1640. Pt was cleaned, left dry and repositioned at this time. Will continue to monitor.
--- NOTE | 2020-03-04 18:48 | NUR ---
Closing Notes Patient is awake, alert and oriented x2. No resp distress noted. Breathing is even and unlabored. Pt shows no signs of pain at this time. No signs of agitation at this time. IV site on left FA, 22 gauge intact at this time. Pt is still refusing IVF. D5 1/2 NS hanging by bedside. Pt is incontinent, cleaned and left dry. All needs met. Safety and fall precautions in place. Bed in lowest position, alarm on, locked. Will continue to monitor.
--- NOTE | 2020-03-04 19:30 | NUR ---
Opening notes Received report. Patient is resting in bed, no signs of distress noted. Breathing even and unlabored on room air. IV patent and intact, no signs of infiltration noted. Patient refusing IVF. Patient is eating and drinking well. Hygiene care provided as patient is incontinent. Patient wanting to talk to on phone. Will try to connect. No other needs. Call light with the patient. Safety precautions in place.
[2020-03-04 20:00] VITALS: BP_SYST 114
--- NOTE | 2020-03-04 20:00 | NUR ---
Patient spoke with on phone Patient request to speak to . Phone call transferred to patient.
[2020-03-04] MEDS: ATORVASTATIN 10 MG TABLET PO SCH (20:51)
--- NOTE | 2020-03-04 20:51 | NUR ---
Medications given. Educated the action and side effects of Lipitor. Patient verbalized understanding and tolerated well. No other needs at this time. Call light with the patient. Safety precautions in place.
--- NOTE | 2020-03-04 22:30 | NUR ---
RN rounds Patient is resting in bed, no signs of distress noted. Breathing even and unlabored on room air. No needs at this time. Call light with the patient. Safety precautions in place.
[2020-03-05] VITALS: BP_SYST 113
--- NOTE | 2020-03-05 00:40 | NUR ---
RN rounds Patient is sleeping. No signs of distress noted. Breathing even and unlabored on room air. VSS. No needs, call light with the patient. Safety precautions in place.
--- NOTE | 2020-03-05 02:30 | NUR ---
RN rounds Patient resting in bed, no signs of distress noted. Breathing even and unlabored on room air. Hygiene care provided. Patient tolerated well. No other needs. Call light with the patient. Safety precautions in place.
--- NOTE | 2020-03-05 04:40 | NUR ---
RN rounds Patient is sleeping. No signs of distress noted. Breathing even and unlabored on room air. No needs, call light with the patient. Safety precautions in place.
--- NOTE | 2020-03-05 06:52 | NUR ---
Closing notes Patient is resting in bed, no signs of distress noted. Breathing even and unlabored on room air. IV patent and intact, no signs of infiltration noted. All needs met throughout the shift. Call light with the patient. Safety precautions in place. will endorse care to day shift RN.
--- NOTE | 2020-03-05 07:45 | NUR ---
Opening Notes/Low BP Patient is awake, alert and oriented x2. No confusion at this time. No resp distress noted. Breathing is even and unlabored at this time. Pt denies any pain at this time. Pt remains on bedrest, incontinent. Pt was cleaned, left dry and repositioned in bed. Pts BP is low, noted at 89/86. Patient was encouraged to continue with IV hydration to maintain blood pressure. Aware and agreed. IV site on left FA, 22 gauge intact at this time. D5 1/2 NS @ 50 cc/hr infusing well at this time. Legs were also elevated at this time. All needs met. Safety and fall precautions in place. Bed in lowest position, alarm on, locked. Will continue to monitor.
[2020-03-05 08:00] VITALS: BP_SYST 120
[2020-03-05] MEDS: lisinopriL 5 MG TABLET PO SCH (09:00)
[2020-03-05] MEDS: FAMOTIDINE 20 MG TABLET PO SCH (09:35)
[2020-03-05] MEDS: BENZTROPINE MESYLATE 1 MG TABLET PO SCH ×2 (09:36→20:50)
[2020-03-05] MEDS: risperiDONE 1 MG TABLET (RisperDAL) PO SCH (09:36)
[2020-03-05] MEDS: MEMANTINE HCL 5 MG TABLET PO SCH ×2 (09:36→20:50)
--- NOTE | 2020-03-05 10:10 | NUR ---
Notes Patient is laying in bed, agitation noted. Noted yelling in her room. Pts BP was rechecked at 0840, stable: noted at 120/66. No needs at this time. Will continue to monitor.
[2020-03-05 11:29] VITALS: BP_SYST 121
--- NOTE | 2020-03-05 12:25 | NUR ---
Notes Patient is laying in bed, watching TV. Some agitation noted, patient screams while laying in bed. Nurse assisted patient to call her via hospital telephone. Pt is also eating lunch at this time, poor appetite, ate 20%. Repositioned in bed. All needs met. Safety and fall precautions in place. Bed in lowest position, alarm on, locked. Will continue to monitor.
--- NOTE | 2020-03-05 14:45 | NUR ---
Notes Patient is laying in bed and watching TV. No agitation noted at this time. No resp distress noted. Breathing is even and unlabored. Pt is incontinent in urine. Cleaned, left dry and repositioned in bed. Will continue to monitor.
[2020-03-05 15:43] VITALS: BP_SYST 107
--- NOTE | 2020-03-05 15:44 | NUR ---
SS notes: NUT GRADER spoke with Marycarmen GUERRA requesting for Psych to re-eval patient. SS will follow up.
--- NOTE | 2020-03-05 15:55 | NUR ---
SPOKE WITH JOELLE FITZPATRICK OFFICE RE HOLD DR FITZPATRICK IS OUT OF TOWN UNTIL 03/07 OFFICE HAS NOT BEEN TOLD WHO IS TRAFFIC SIGNAL REPAIRER
--- NOTE | 2020-03-05 16:15 | NUR ---
Notes Patient is sleeping at this time. No resp distress noted. Breathing is even and unlabored. No signs of pain at this time. Will continue to monitor.
--- NOTE | 2020-03-05 18:49 | NUR ---
Closing Notes Patient is awake, alert and oriented x2. Pt is noted with episodes of confusion and agitation. No resp distress noted. Breathing is even and unlabored at this time. IV site on left FA, 22 gauge intact at this time. D5 1/2 NS @ 50 cc/hr, infusing well at this time. Dressing is clean and dry. Pt is refusing to eat dinner, ate 0%. Nurse educated pt on benefits of nutrition, pt refused x3. Repositioned in bed. All needs met. Safety and fall precautions in place. Bed in lowest position, alarm on, locked. Will continue to monitor.
--- NOTE | 2020-03-05 19:30 | NUR ---
Opening notes Received report. Patient is resting in bed, no signs of distress noted. Breathing even and unlabored on room air. IV patent and intact, no signs of infiltration noted. IVF infusing well. Patient given phone to talk to . No other needs. Call light with the patient. Safety precautions in place.
[2020-03-05 20:00] VITALS: BP_SYST 116
[2020-03-05] MEDS: D5/0.45 NS 1,000 ML IV SCH (20:50)
[2020-03-05] MEDS: ATORVASTATIN 10 MG TABLET PO SCH (20:50)
--- NOTE | 2020-03-05 20:50 | NUR ---
Medications given. Educated the action and side effects of Namenda. Patient verbalized understanding and tolerated well. Patient incontinent. Hygiene care provided. Patient able to help turn. No other needs at this time. Call light with the patient. Safety precautions in place.
--- NOTE | 2020-03-05 22:45 | NUR ---
RN rounds Patient sitting up, watching TV. No signs of distress noted. Breathing even and unlabored on room air. IVF infusing well. Call light with the patient. Safety precautions in place.
--- NOTE | 2020-03-06 00:30 | NUR ---
RN rounds Patient resting in bed, no signs of distress noted. breathing even and unlabored on room air. VSS. Patient incontinent. Hygiene care done. Patient tolerated well. No other needs. Call light with the patient. Safety precautions in place.
[2020-03-06 00:47] VITALS: BP_SYST 150
--- NOTE | 2020-03-06 04:47 | NUR ---
RN rounds Patient is resting in bed, no signs of distress noted. Breathing even and unlabored on room air. Hygiene care provided. Patient tolerated well. No other needs. Call light with the patient. Safety precautions in place.
--- NOTE | 2020-03-06 07:05 | NUR ---
Closing notes Patient is resting in bed, no signs of distress noted. Breathing even and unlabored on room air. IV patent and intact, no signs of infiltration noted. IVF infusing. All needs met throughout the shift. Call light with the patient. Safety precautions in place. will endorse care to day shift RN.
[2020-03-06 08:00] VITALS: BP_SYST 150
[2020-03-06] MEDS: BENZTROPINE MESYLATE 1 MG TABLET PO SCH ×2 (09:00→09:17)
[2020-03-06] MEDS: FAMOTIDINE 20 MG TABLET PO SCH ×2 (09:00→09:17)
[2020-03-06] MEDS: MEMANTINE HCL 5 MG TABLET PO SCH ×2 (09:00→09:17)
[2020-03-06] MEDS: risperiDONE 1 MG TABLET (RisperDAL) PO SCH ×2 (09:00→09:16)
[2020-03-06] MEDS: lisinopriL 5 MG TABLET PO SCH ×2 (09:00→09:21)
--- NOTE | 2020-03-06 09:43 | NUR ---
Marichuy PAGED PAGED 'S AT [phone] SPOKE WITH MEREDITH, HE SAID , OR EQUIPMENT APPLICATION SPECIALIST. .
--- NOTE | 2020-03-06 10:00 | NUR ---
Pt refused all morning meds. Pt spit meds out. Pt A/O x1 to person. Pt to have Psych consult today for 5150 (Danger to self/others). Pt verbally abusive in Maori Language, but understands Kuwaiti. Answers Kuwaiti questions in Maori. VS stable. No c/o pain or discomfort. Pt room near nurses' station for safety. All safety precautions in place. Care of pt continued.
[2020-03-06 11:31] VITALS: BP_SYST 140
--- NOTE | 2020-03-06 13:49 | NUR ---
Nutrition F/U RD reviewed pt's current EMR record including diet hx, MD notes, RN notes, pertinent labs/meds/procedures, care trends, and care activity Admitting Diagnosis Encephalopathy Reviewed Pertinent Medical/Surgical Hx Medical Record Patient Medical History Comment: PMH: HTN, dementia, anxiety/depression per physician notes No SARS-CoV-2 Ag (Rapid) lab test/results Subjective Information RD unable to reach RN via phone d/t phone line busy. Gibraltarian-speaking pt admitted for encephalopathy, continues to have poor PO intake since previous RD assessment, w/ 43% average x last 14 meals. A/w psych evaluation for discharge planning to psych facility per bed huddle. Pt currently is not meeting nutritional needs. Recommend continue 2g Na Diet and provide Ensure Enlive BID to provide additional 700 kcal, 40 g protein to promote PO intake. Noted pt LBM on 03/04. Current Diet Order/Nutrition Support 2 gm Na x 5 days Pertinent Medications Reviewed Pertinent Labs Reviewed Skin Integrity Comment: Solis scale: 18; no skin issues noted Current % PO Poor (25-49%) Estimated Energy Expenditure (kcals/day) 3883-2429 kcal/day (25-30 kcal/kg Adj IBW for maintenance) Estimated Protein Required (g/day) 71 gm/day (1.2 gm/kg Adj IBW for geriatric maintenance) Estimated Fluid Required (l/day) 1.5-1.8 L/day (1 ml/kcal/day for maintenance) Problem/Etiology/Signs/Symptoms Predicted suboptimal nutritional intakes related to possible lack of appetite as evidenced by report of poor PO intakes for greater than 1 week. *ongoing Expected Outcomes/Goals - Monitor appetite and PO intakes w/ goal of pt meeting at least 75% of estimated nutritional needs, labs trending WNL, normal GI function, and skin integrity/wt maintenance Dietitian Recommendations * Recommend continuing 2 gm Na diet * Encourage increase PO intakes * Recommend provide Ensure Enlive BID to provide additional 700 kcal, 40 g protein to promote PO intake. Follow Up Mod Risk: F/U in 3-5 days
--- NOTE | 2020-03-06 13:58 | NUR ---
Dietitian Recommendations * Recommend continuing 2 gm Na diet * Encourage increase PO intakes * Recommend provide Ensure Enlive BID to provide additional 700 kcal, 40 g protein to promote PO intake. Please see Nutrition F/U for details. KENDRICK WHITMORE
[2020-03-06] MEDS: D5/0.45 NS 1,000 ML IV SCH (14:00)
--- NOTE | 2020-03-06 14:39 | NUR ---
SS NOTES/PSYCH TRANSFER: Pt was placed on 5150 hold for DTS and GD. LPS hold and covid result faxed to [facility] (p:[phone]). DEAN provided Ksenia with [facility] verdugo/RN phone number. Awaiting for bed assignment. Addendum: 03/06/20 at 1521 by Bryan MORAN Accepting Info: [facility] Room: 54[address] Dr. Du and Dr. Vaughan report: [phone] 6PM picked edge sewing machine operator with [facility] Marycarmen GUERRA notified. Addendum: 03/06/20 at 1536 by Bryan MORAN DEAN phoned shaheen Thayer and informed of transfer and provided him with room number and facility contact information.
[2020-03-06 15:48] VITALS: BP_SYST 148
[2020-03-06 17:59] VITALS: BP_SYST 148
--- NOTE | 2020-03-06 18:10 | NUR ---
SBAR report given to CHARLIE Garduno and EMT from [facility] for continuity of care. All necessary medical records from this hospitalization given to EMT to travel with pt in Ambulance to [facility]. Pt safety maintained during shift. VS stable. No acute events during shift. Pt safely Discharged. Addendum: 03/06/20 at 1857 by Antionette Abdi RN 0: SBAR report given to BART Garduno at [facility] for continuity of care. SBAR report given to EMT from [facility] for continuity of care. All necessary medical records from this hospitalization given to EMT to travel with pt in Ambulance to [facility]. Pt safety maintained during shift. VS stable. No acute events during shift. Pt safely Discharged.
== END 2020-03-06 18:40 | DRG 71 ==
LOC: SED 16:25 → SMU 17:48
PROVIDERS: ADMIT Internal Medicine; ATTEND Internal Medicine
DX: G93.41 Metabolic encephalopathy (principal); F03.91 Unspecified dementia, unspecified severity, with behavioral disturbance; E44.1 Mild protein-calorie malnutrition; R64 Cachexia; F20.9 Schizophrenia, unspecified; F80.9 Developmental disorder of speech and language, unspecified; I10 Essential (primary) hypertension; F41.9 Anxiety disorder, unspecified; Z20.828 Contact with and (suspected) exposure to other viral communicable diseases; F32.9 Major depressive disorder, single episode, unspecified; Z79.899 Other long term (current) drug therapy; Z88.0 Allergy status to penicillin
CPT/HCPCS: 36415; 80048; 80053; 80307; 81003; 85025; 93005; 96360; 96372; 99285; G0480; G0481; G0482; J1630; J2060; J7030

== ENCOUNTER 2020-03-19 18:20 | Inpatient (IN) | payer OTHER, SELFPAY ==
[~2020-03-19] VITALS: Ht 162.6 cm; Wt 74.8 kg
[~2020-03-19 18:20] MED LIST changes: +BENZ1TAB76 PO; +FAMO20TA8 PO; +LIP10 PO; +LISI-209 PO; +MEMA10TA PO; -RISP2TAB5 PO; +RIVA1PAT3 TP
[2020-03-19 18:25] VITALS: BP_SYST 131
[2020-03-19] MEDS ORDERED: LORA-258 PO (19:06)
[2020-03-19] MEDS ORDERED: MULT-1117 PO (19:06)
[2020-03-19] MEDS ORDERED: ACET325T PO (19:06)
[2020-03-19] MEDS ORDERED: BENZ1TAB8 PO (19:06)
[2020-03-19] MEDS ORDERED: IBUP-1968 PO (19:06)
[2020-03-19] MEDS ORDERED: ACET-2634 PO (19:06)
[2020-03-19] MEDS ORDERED: MAALOX PO (19:06)
[2020-03-19] MEDS ORDERED: RISP2TAB5 PO (19:06)
[2020-03-19] MEDS ORDERED: LISI-209 PO (19:06)
[2020-03-19] MEDS ORDERED: MOM PO (19:06)
[2020-03-19] MEDS ORDERED: RISP3TAB5 PO (19:06)
[2020-03-19 20:33] LABS: BASOPHILS % (AUTO) 0.1 % (0.0-2.0); EOSINOPHILS % (AUTO) 0.6 % (0.0-4.0); HEMOGLOBIN 12.5 g/dL (12.0-16.0); LYMPHOCYTES # (AUTO) 1.2 K/uL (1.0-5.5); LYMPHOCYTES % (AUTO) 30.7 % (20.5-51.5); MEAN CORPUSCULAR HEMOGLOBIN 29 pg (27-31); MEAN CORPUSCULAR HGB CONC 33 % (32-36); MEAN CORPUSCULAR VOLUME 87 fL (79.0-98.0); MONOCYTES # (AUTO) 0.3 K/uL (0.0-1.0); NEUTROPHILS # (AUTO) 2.3 K/uL (1.8-7.7); NEUTROPHILS % (AUTO) 60.6 % (40.0-70.0); PLATELET COUNT (AUTO) 173 K/uL (130-430); RED BLOOD CELL COUNT(AUTO) 4.36 MIL/uL (4.2-6.2); RED CELL DISTRIBUTION WIDTH 15.2 % (9.0-15.0); WHITE BLOOD COUNT (AUTO) 3.8 K/uL (4.8-10.8)
[2020-03-19 20:40] LABS: BILIRUBIN,URINE NEGATIVE (NEGATIVE); CLARITY/URINE CLEAR (CLEAR); COLOR,URINE YELLOW (YELLOW); GLUCOSE,URINE NEGATIVE (NEGATIVE); KETONES,URINE TRACE (NEGATIVE); LEUKOCYTE ESTERASE ,URINE NEGATIVE (NEGATIVE); NITRITE, URINE NEGATIVE (NEGATIVE); PROTEIN URINE NEGATIVE (NEGATIVE)
[2020-03-19 20:47] LABS: CALCIUM 8.7 mg/dL (8.4-11.0); CREATININE 0.71 mg/dL (0.55-1.30); POTASSIUM 3.8 mmol/L (3.5-5.1)
[2020-03-19 20:49] LABS: BLOOD, URINE TRACE (NEGATIVE)
[2020-03-19 20:53] LABS: ALBUMIN 3.5 g/dL (3.4-4.8); TOTAL BILIRUBIN 0.3 mg/dL (0.0-1.0)
[2020-03-19 20:54] LABS: BACTERIA,URINE FEW /HPF (None Seen); MUCUS,URINE 2+ /LPF (None Seen); WBC,URINE 0-3 /HPF (0-3)
[2020-03-19 21:30] LABS: C-REACTIVE PROTEIN QUANT 0.4 mg/dL (0-0.5)
[2020-03-19 21:32] LABS: PROTHROMBIN TIME 10.7 SECS (9.5-12.5)
[2020-03-19] MEDS ORDERED: MAG-AL HYDROX/SIMETH 30 ML UDC PO PRN (22:45)
[2020-03-19] MEDS ORDERED: ACETAMINOPHEN 500 MG TABLET PO PRN (22:45)
[2020-03-19] MEDS ORDERED: ACETAMINOPHEN 325 MG TABLET PO PRN (22:45)
[2020-03-19 23:42] VITALS: BP_SYST 133
[2020-03-19 23:49] LABS: FIBRINOGEN 457 mg/dL (200-400)
[2020-03-20 08:41] VITALS: BP_SYST 140
[2020-03-20] MEDS ORDERED: RIVASTIGMINE 9.5 MG/24 HR PATCH.TD24 TP SCH (09:00)
[2020-03-20] MEDS: BENZTROPINE MESYLATE 1 MG TABLET PO SCH (09:03)
[2020-03-20] MEDS: MULTIVITAMINS TAB 1 TABLET PO SCH (09:03)
[2020-03-20] MEDS: CHOLECALCIFEROL (VITAMIN D3) 2,000 UNIT TABLET PO SCH (09:03)
[2020-03-20] MEDS: lisinopriL 5 MG TABLET PO SCH (09:03)
[2020-03-20] MEDS: MAGNESIUM OXIDE 400 MG TABLET PO SCH (09:03)
[2020-03-20] MEDS: MEMANTINE HCL 5 MG TABLET PO SCH (09:03)
[2020-03-20] MEDS: FAMOTIDINE 20 MG TABLET PO SCH (09:03)
[2020-03-20] MEDS: ASCORBIC ACID 500 MG TABLET PO SCH (09:03)
[2020-03-20 12:53] VITALS: BP_SYST 135
[2020-03-20 16:20] VITALS: BP_SYST 144
[2020-03-20] MEDS: MILK OF MAGNESIA 30 ML UDC PO SCH (21:00)
[2020-03-20] MEDS: ATORVASTATIN 10 MG TABLET PO SCH (21:00)
[2020-03-21 08:35] VITALS: BP_SYST 122
[2020-03-21] MEDS: FAMOTIDINE 20 MG TABLET PO SCH (09:00)
[2020-03-21] MEDS: MAGNESIUM OXIDE 400 MG TABLET PO SCH ×2 (09:00→21:25)
[2020-03-21] MEDS: lisinopriL 5 MG TABLET PO SCH (09:00)
[2020-03-21] MEDS: CHOLECALCIFEROL (VITAMIN D3) 2,000 UNIT TABLET PO SCH (09:00)
[2020-03-21] MEDS: ASCORBIC ACID 500 MG TABLET PO SCH ×2 (09:00→21:25)
[2020-03-21] MEDS: MEMANTINE HCL 5 MG TABLET PO SCH ×2 (09:00→21:25)
[2020-03-21] MEDS: RIVASTIGMINE 9.5 MG/24 HR PATCH.TD24 TP SCH (09:00)
[2020-03-21] MEDS: BENZTROPINE MESYLATE 1 MG TABLET PO SCH ×2 (09:00→21:25)
[2020-03-21] MEDS: MULTIVITAMINS TAB 1 TABLET PO SCH (09:52)
[2020-03-21 12:15] VITALS: BP_SYST 111
[2020-03-21] MEDS ORDERED: LORazepam 2 MG/ML VIAL IVP ONE (13:30)
[2020-03-21 15:45] VITALS: BP_SYST 131
[2020-03-21 20:00] VITALS: BP_SYST 142
[2020-03-21] MEDS: LORazepam 1 MG TABLET PO PRN (20:45)
[2020-03-21] MEDS: MILK OF MAGNESIA 30 ML UDC PO SCH (21:26)
[2020-03-21] MEDS: ATORVASTATIN 10 MG TABLET PO SCH (21:26)
[2020-03-22] VITALS: BP_SYST 138
[2020-03-22 08:00] VITALS: BP_SYST 100
[2020-03-22] MEDS: RIVASTIGMINE 9.5 MG/24 HR PATCH.TD24 TP SCH (09:00)
[2020-03-22] MEDS: ASCORBIC ACID 500 MG TABLET PO SCH ×2 (10:30→21:00)
[2020-03-22] MEDS: BENZTROPINE MESYLATE 1 MG TABLET PO SCH ×2 (10:30→21:00)
[2020-03-22] MEDS: MEMANTINE HCL 5 MG TABLET PO SCH ×2 (10:30→21:00)
[2020-03-22] MEDS: MAGNESIUM OXIDE 400 MG TABLET PO SCH ×2 (10:30→21:00)
[2020-03-22] MEDS: CHOLECALCIFEROL (VITAMIN D3) 2,000 UNIT TABLET PO SCH (10:30)
[2020-03-22] MEDS: lisinopriL 5 MG TABLET PO SCH (10:30)
[2020-03-22] MEDS: FAMOTIDINE 20 MG TABLET PO SCH (10:30)
[2020-03-22] MEDS: LORazepam 1 MG TABLET PO PRN ×2 (11:13→17:55)
[2020-03-22 16:09] VITALS: BP_SYST 115
[2020-03-22 19:00] VITALS: BP_SYST 105
[2020-03-22 20:00] VITALS: BP_SYST 105
[2020-03-22] MEDS: ATORVASTATIN 10 MG TABLET PO SCH (21:00)
[2020-03-22] MEDS: MILK OF MAGNESIA 30 ML UDC PO SCH (21:00)
[2020-03-23 08:00] VITALS: BP_SYST 129
[2020-03-23] MEDS: CHOLECALCIFEROL (VITAMIN D3) 2,000 UNIT TABLET PO SCH (09:00)
[2020-03-23] MEDS: RIVASTIGMINE 9.5 MG/24 HR PATCH.TD24 TP SCH (09:00)
[2020-03-23] MEDS: BENZTROPINE MESYLATE 1 MG TABLET PO SCH ×2 (09:00→21:46)
[2020-03-23] MEDS: MEMANTINE HCL 5 MG TABLET PO SCH ×2 (09:00→21:46)
[2020-03-23] MEDS: ASCORBIC ACID 500 MG TABLET PO SCH ×2 (09:00→21:47)
[2020-03-23] MEDS: lisinopriL 5 MG TABLET PO SCH (09:00)
[2020-03-23] MEDS: FAMOTIDINE 20 MG TABLET PO SCH (09:00)
[2020-03-23] MEDS: MULTIVITAMINS TAB 1 TABLET PO SCH (09:00)
[2020-03-23] MEDS: MAGNESIUM OXIDE 400 MG TABLET PO SCH ×2 (09:00→21:46)
[2020-03-23 12:00] VITALS: BP_SYST 130
[2020-03-23] MEDS: LORazepam 1 MG TABLET PO PRN ×3 (12:55→17:28)
[2020-03-23 16:00] VITALS: BP_SYST 134
[2020-03-23 20:00] VITALS: BP_SYST 132
[2020-03-23] MEDS: ATORVASTATIN 10 MG TABLET PO SCH (21:46)
[2020-03-23] MEDS: MILK OF MAGNESIA 30 ML UDC PO SCH (21:46)
[2020-03-23] MEDS: risperiDONE 1 MG TABLET (RisperDAL) PO SCH (21:47)
[2020-03-24] VITALS: BP_SYST 111
[2020-03-24 06:43] LABS: BASOPHILS % (AUTO) 0.1 % (0.0-2.0); EOSINOPHILS # (AUTO) 0.1 K/uL (0.0-0.4); EOSINOPHILS % (AUTO) 1.9 % (0.0-4.0); HEMATOCRIT 37.8 % (36-48); HEMOGLOBIN 12.4 g/dL (12.0-16.0); LYMPHOCYTES # (AUTO) 1.5 K/uL (1.0-5.5); LYMPHOCYTES % (AUTO) 34.5 % (20.5-51.5); MEAN CORPUSCULAR HEMOGLOBIN 29 pg (27-31); MEAN CORPUSCULAR HGB CONC 33 % (32-36); MEAN CORPUSCULAR VOLUME 87 fL (79.0-98.0); MONOCYTES # (AUTO) 0.3 K/uL (0.0-1.0); MONOCYTES % (AUTO) 7.6 % (1.7-9.3); NEUTROPHILS # (AUTO) 2.4 K/uL (1.8-7.7); NEUTROPHILS % (AUTO) 55.9 % (40.0-70.0); PLATELET COUNT (AUTO) 193 K/uL (130-430); RED BLOOD CELL COUNT(AUTO) 4.34 MIL/uL (4.2-6.2); RED CELL DISTRIBUTION WIDTH 15.5 % (9.0-15.0); WHITE BLOOD COUNT (AUTO) 4.4 K/uL (4.8-10.8)
[2020-03-24 07:09] LABS: CALCIUM 8.3 mg/dL (8.4-11.0); CREATININE 0.67 mg/dL (0.55-1.30)
[2020-03-24 08:29] VITALS: BP_SYST 105
[2020-03-24] MEDS: lisinopriL 5 MG TABLET PO SCH (09:00)
[2020-03-24] MEDS: LORazepam 1 MG TABLET PO PRN ×3 (09:15→21:49)
[2020-03-24] MEDS: ASCORBIC ACID 500 MG TABLET PO SCH ×2 (10:18→21:49)
[2020-03-24] MEDS: MULTIVITAMINS TAB 1 TABLET PO SCH (10:18)
[2020-03-24] MEDS: MAGNESIUM OXIDE 400 MG TABLET PO SCH ×2 (10:18→21:49)
[2020-03-24] MEDS: FAMOTIDINE 20 MG TABLET PO SCH (10:18)
[2020-03-24] MEDS: risperiDONE 1 MG TABLET (RisperDAL) PO SCH ×2 (10:18→21:49)
[2020-03-24] MEDS: MEMANTINE HCL 5 MG TABLET PO SCH ×2 (10:18→21:49)
[2020-03-24] MEDS: RIVASTIGMINE 9.5 MG/24 HR PATCH.TD24 TP SCH (10:18)
[2020-03-24] MEDS: BENZTROPINE MESYLATE 1 MG TABLET PO SCH ×2 (10:18→21:49)
[2020-03-24] MEDS: CHOLECALCIFEROL (VITAMIN D3) 2,000 UNIT TABLET PO SCH (10:18)
[2020-03-24 12:55] VITALS: BP_SYST 136
[2020-03-24 16:00] VITALS: BP_SYST 115
[2020-03-24 20:00] VITALS: BP_SYST 127
[2020-03-24] MEDS: MILK OF MAGNESIA 30 ML UDC PO SCH (21:49)
[2020-03-24] MEDS: ATORVASTATIN 10 MG TABLET PO SCH (21:49)
[2020-03-25] VITALS: BP_SYST 122
[2020-03-25 08:32] VITALS: BP_SYST 108
[2020-03-25] MEDS: BENZTROPINE MESYLATE 1 MG TABLET PO SCH ×2 (08:34→21:00)
[2020-03-25] MEDS: MEMANTINE HCL 5 MG TABLET PO SCH ×2 (08:39→21:01)
[2020-03-25] MEDS: MAGNESIUM OXIDE 400 MG TABLET PO SCH ×2 (08:39→21:00)
[2020-03-25] MEDS: MULTIVITAMINS TAB 1 TABLET PO SCH (08:39)
[2020-03-25] MEDS: FAMOTIDINE 20 MG TABLET PO SCH (08:39)
[2020-03-25] MEDS: risperiDONE 1 MG TABLET (RisperDAL) PO SCH ×2 (08:40→21:01)
[2020-03-25] MEDS: ASCORBIC ACID 500 MG TABLET PO SCH ×2 (08:40→21:01)
[2020-03-25] MEDS: CHOLECALCIFEROL (VITAMIN D3) 2,000 UNIT TABLET PO SCH (08:40)
[2020-03-25] MEDS: lisinopriL 5 MG TABLET PO SCH (08:40)
[2020-03-25] MEDS: RIVASTIGMINE 9.5 MG/24 HR PATCH.TD24 TP SCH (09:00)
[2020-03-25 11:28] VITALS: BP_SYST 108
[2020-03-25 16:08] VITALS: BP_SYST 120
[2020-03-25 20:41] VITALS: BP_SYST 111
[2020-03-25] MEDS: MILK OF MAGNESIA 30 ML UDC PO SCH (21:00)
[2020-03-25] MEDS: ATORVASTATIN 10 MG TABLET PO SCH (21:02)
[2020-03-26] VITALS (7 sets, daily range): BP systolic 97–126
[2020-03-26] MEDS: RIVASTIGMINE 9.5 MG/24 HR PATCH.TD24 TP SCH (09:00)
[2020-03-26] MEDS: MAGNESIUM OXIDE 400 MG TABLET PO SCH ×2 (09:32→20:46)
[2020-03-26] MEDS: BENZTROPINE MESYLATE 1 MG TABLET PO SCH ×2 (09:32→20:46)
[2020-03-26] MEDS: MULTIVITAMINS TAB 1 TABLET PO SCH (09:32)
[2020-03-26] MEDS: lisinopriL 5 MG TABLET PO SCH (09:33)
[2020-03-26] MEDS: ASCORBIC ACID 500 MG TABLET PO SCH ×2 (09:33→20:46)
[2020-03-26] MEDS: CHOLECALCIFEROL (VITAMIN D3) 2,000 UNIT TABLET PO SCH (09:33)
[2020-03-26] MEDS: risperiDONE 1 MG TABLET (RisperDAL) PO SCH ×2 (09:33→20:46)
[2020-03-26] MEDS: MEMANTINE HCL 5 MG TABLET PO SCH ×2 (09:33→20:46)
[2020-03-26] MEDS: FAMOTIDINE 20 MG TABLET PO SCH (09:33)
[2020-03-26] MEDS: LORazepam 1 MG TABLET PO PRN (13:30)
[2020-03-26] MEDS: ATORVASTATIN 10 MG TABLET PO SCH (20:46)
[2020-03-26] MEDS: MILK OF MAGNESIA 30 ML UDC PO SCH (20:46)
[2020-03-27 08:00] VITALS: BP_SYST 102
[2020-03-27] MEDS: lisinopriL 5 MG TABLET PO SCH (09:00)
[2020-03-27] MEDS: LORazepam 1 MG TABLET PO PRN ×2 (09:00→13:05)
[2020-03-27] MEDS: MEMANTINE HCL 5 MG TABLET PO SCH ×2 (10:10→21:00)
[2020-03-27] MEDS: FAMOTIDINE 20 MG TABLET PO SCH (10:10)
[2020-03-27] MEDS: MAGNESIUM OXIDE 400 MG TABLET PO SCH ×2 (10:10→21:00)
[2020-03-27] MEDS: BENZTROPINE MESYLATE 1 MG TABLET PO SCH ×2 (10:10→21:00)
[2020-03-27] MEDS: MULTIVITAMINS TAB 1 TABLET PO SCH (10:10)
[2020-03-27] MEDS: risperiDONE 1 MG TABLET (RisperDAL) PO SCH ×2 (10:11→21:00)
[2020-03-27] MEDS: ASCORBIC ACID 500 MG TABLET PO SCH ×2 (10:11→21:00)
[2020-03-27] MEDS: RIVASTIGMINE 9.5 MG/24 HR PATCH.TD24 TP SCH (10:11)
[2020-03-27] MEDS: CHOLECALCIFEROL (VITAMIN D3) 2,000 UNIT TABLET PO SCH (10:11)
[2020-03-27 12:00] VITALS: BP_SYST 98
[2020-03-27 16:00] VITALS: BP_SYST 122
[2020-03-27 20:00] VITALS: BP_SYST 135
[2020-03-27] MEDS: ATORVASTATIN 10 MG TABLET PO SCH (21:00)
[2020-03-27] MEDS: MILK OF MAGNESIA 30 ML UDC PO SCH (21:00)
[2020-03-28] VITALS: BP_SYST 127
[2020-03-28 08:00] VITALS: BP_SYST 113
[2020-03-28] MEDS: LORazepam 1 MG TABLET PO PRN (08:15)
[2020-03-28] MEDS: RIVASTIGMINE 9.5 MG/24 HR PATCH.TD24 TP SCH (09:00)
[2020-03-28] MEDS: BENZTROPINE MESYLATE 1 MG TABLET PO SCH ×2 (09:53→20:47)
[2020-03-28] MEDS: ASCORBIC ACID 500 MG TABLET PO SCH ×2 (09:53→20:47)
[2020-03-28] MEDS: lisinopriL 5 MG TABLET PO SCH (09:53)
[2020-03-28] MEDS: MEMANTINE HCL 5 MG TABLET PO SCH ×2 (09:53→20:47)
[2020-03-28] MEDS: risperiDONE 1 MG TABLET (RisperDAL) PO SCH ×2 (09:53→20:47)
[2020-03-28] MEDS: MAGNESIUM OXIDE 400 MG TABLET PO SCH ×2 (09:53→20:47)
[2020-03-28] MEDS: MULTIVITAMINS TAB 1 TABLET PO SCH (09:53)
[2020-03-28] MEDS: FAMOTIDINE 20 MG TABLET PO SCH (09:53)
[2020-03-28] MEDS: CHOLECALCIFEROL (VITAMIN D3) 2,000 UNIT TABLET PO SCH (09:54)
[2020-03-28 12:00] VITALS: BP_SYST 110
[2020-03-28 16:00] VITALS: BP_SYST 108
[2020-03-28 20:47] VITALS: BP_SYST 130
[2020-03-28] MEDS: MILK OF MAGNESIA 30 ML UDC PO SCH (20:47)
[2020-03-28] MEDS: ATORVASTATIN 10 MG TABLET PO SCH (20:47)
[2020-03-28] MEDS ORDERED: LORazepam 2 MG/ML VIAL IM PRN (23:00)
[2020-03-29] VITALS: BP_SYST 145
[2020-03-29 06:36] LABS: BASOPHILS % (AUTO) 0.6 % (0.0-2.0); EOSINOPHILS # (AUTO) 0.1 K/uL (0.0-0.4); EOSINOPHILS % (AUTO) 1.8 % (0.0-4.0); HEMATOCRIT 37.2 % (36-48); HEMOGLOBIN 12.3 g/dL (12.0-16.0); LYMPHOCYTES # (AUTO) 1.6 K/uL (1.0-5.5); LYMPHOCYTES % (AUTO) 34.3 % (20.5-51.5); MEAN CORPUSCULAR HEMOGLOBIN 29 pg (27-31); MEAN CORPUSCULAR HGB CONC 33 % (32-36); MEAN CORPUSCULAR VOLUME 88 fL (79.0-98.0); MONOCYTES # (AUTO) 0.3 K/uL (0.0-1.0); MONOCYTES % (AUTO) 7.2 % (1.7-9.3); NEUTROPHILS # (AUTO) 2.6 K/uL (1.8-7.7); NEUTROPHILS % (AUTO) 56.1 % (40.0-70.0); PLATELET COUNT (AUTO) 91 K/uL (130-430); RED BLOOD CELL COUNT(AUTO) 4.24 MIL/uL (4.2-6.2); RED CELL DISTRIBUTION WIDTH 15.6 % (9.0-15.0); WHITE BLOOD COUNT (AUTO) 4.6 K/uL (4.8-10.8)
[2020-03-29 07:04] LABS: CALCIUM 8.3 mg/dL (8.4-11.0); CREATININE 0.76 mg/dL (0.55-1.30); POTASSIUM 4.3 mmol/L (3.5-5.1)
[2020-03-29 08:00] VITALS: BP_SYST 130
[2020-03-29] MEDS: risperiDONE 1 MG TABLET (RisperDAL) PO SCH ×2 (08:36→20:17)
[2020-03-29] MEDS: FAMOTIDINE 20 MG TABLET PO SCH (08:36)
[2020-03-29] MEDS: MULTIVITAMINS TAB 1 TABLET PO SCH (08:36)
[2020-03-29] MEDS: ASCORBIC ACID 500 MG TABLET PO SCH ×2 (08:36→20:17)
[2020-03-29] MEDS: CHOLECALCIFEROL (VITAMIN D3) 2,000 UNIT TABLET PO SCH (08:36)
[2020-03-29] MEDS: lisinopriL 5 MG TABLET PO SCH (08:36)
[2020-03-29] MEDS: BENZTROPINE MESYLATE 1 MG TABLET PO SCH ×2 (08:36→20:17)
[2020-03-29] MEDS: MEMANTINE HCL 5 MG TABLET PO SCH ×2 (08:36→20:17)
[2020-03-29] MEDS: MAGNESIUM OXIDE 400 MG TABLET PO SCH ×2 (08:36→20:17)
[2020-03-29] MEDS: RIVASTIGMINE 9.5 MG/24 HR PATCH.TD24 TP SCH (08:37)
[2020-03-29] MEDS: LORazepam 1 MG TABLET PO PRN (08:41)
[2020-03-29 12:00] VITALS: BP_SYST 130
[2020-03-29 16:00] VITALS: BP_SYST 124
[2020-03-29 18:20] VITALS: BP_SYST 132
[2020-03-29 20:00] VITALS: BP_SYST 121
[2020-03-29] MEDS: MILK OF MAGNESIA 30 ML UDC PO SCH (20:17)
[2020-03-29] MEDS: ATORVASTATIN 10 MG TABLET PO SCH (20:17)
== END 2020-03-29 21:25 | DRG 179 ==
LOC: SED 18:20 → SMU 21:25
PROVIDERS: ADMIT Internal Medicine; ATTEND Internal Medicine
DX: U07.1 COVID-19 (principal); I10 Essential (primary) hypertension; F03.90 Unspecified dementia, unspecified severity, without behavioral disturbance, psychotic disturbance, mood disturbance, and anxiety; E11.9 Type 2 diabetes mellitus without complications; F99 Mental disorder, not otherwise specified; E78.5 Hyperlipidemia, unspecified; Z88.0 Allergy status to penicillin; Z79.899 Other long term (current) drug therapy; Z78.1 Physical restraint status
CPT/HCPCS: 36415; 71045; 80048; 80053; 81000-TC; 82550-TC; 82728; 83605; 83615-TC; 83880; 84484; 85025; 85379; 85384-TC; 85610-TC; 85730-TC; 86140; 86886; 86900; 86901; 87040-TC; 87081; 87086; 93005; 99285; J2060; U0003

== ENCOUNTER 2020-07-20 02:45 | Inpatient (IN) | payer OTHER, SELFPAY ==
[~2020-07-20] VITALS: Ht 172.7 cm; Wt 69.4 kg
[2020-07-20 02:45] VITALS: BP_SYST 95
[~2020-07-20 02:45] MED LIST changes: +ACET-2634 PO; +ACET325T PO; -BENZ1TAB76 PO; +BENZ1TAB8 PO; +IBUP-1968 PO; +LORA-258 PO; +MAALOX PO; +MOM PO; +MULT-1117 PO; +RISP2TAB5 PO; +RISP3TAB5 PO
[2020-07-20] MEDS ORDERED: LEVOFLOXACIN IN DEXTROSE 5 % 100 ML IV ONE (03:00)
[2020-07-20] MEDS ORDERED: NS 1000 ML IV.SOLN IV ONE (03:00)
[2020-07-20] MEDS ORDERED: CLINDAMYCIN 900 mg/50mL D5W 50 ML IV ONE (03:00)
[2020-07-20 03:03] LABS: BASOPHILS % (AUTO) 0.1 % (0.0-2.0); EOSINOPHILS % (AUTO) 0.1 % (0.0-4.0); HEMATOCRIT 35.5 % (36-48); HEMOGLOBIN 11.6 g/dL (12.0-16.0); LYMPHOCYTES # (AUTO) 0.4 K/uL (1.0-5.5); LYMPHOCYTES % (AUTO) 4.6 % (20.5-51.5); MEAN CORPUSCULAR HEMOGLOBIN 30 pg (27-31); MEAN CORPUSCULAR HGB CONC 33 % (32-36); MEAN CORPUSCULAR VOLUME 91 fL (79.0-98.0); MONOCYTES # (AUTO) 0.4 K/uL (0.0-1.0); MONOCYTES % (AUTO) 4.2 % (1.7-9.3); NEUTROPHILS # (AUTO) 7.7 K/uL (1.8-7.7); PLATELET COUNT (AUTO) 170 K/uL (130-430); RED BLOOD CELL COUNT(AUTO) 3.89 MIL/uL (4.2-6.2); RED CELL DISTRIBUTION WIDTH 13.8 % (9.0-15.0); WHITE BLOOD COUNT (AUTO) 8.4 K/uL (4.8-10.8)
[2020-07-20 03:18] LABS: PROTHROMBIN TIME 10.7 SECS (9.5-12.5)
[2020-07-20 03:25] LABS: ANION GAP 11 (5-15); CALCIUM 9.2 mg/dL (8.4-11.0); CHLORIDE 107 mmol/L (98-107); CREATININE 1.19 mg/dL (0.55-1.30); GLUCOSE 138 mg/dL (70-99); POTASSIUM 3.6 mmol/L (3.5-5.1); SODIUM SERUM 146 mmol/L (136-145); UREA NITROGEN, BLOOD 15 mg/dL (8-21)
[2020-07-20 03:30] LABS: ALANINE AMINOTRANSFERASE 20 U/L (12-78); ALBUMIN 3.4 g/dL (3.4-4.8); ASPARTATE AMINOTRANSFERASE 16 U/L (10-37); TOTAL BILIRUBIN 0.6 mg/dL (0.0-1.0)
[2020-07-20 03:54] LABS: BILIRUBIN,URINE NEGATIVE (NEGATIVE); BLOOD, URINE NEGATIVE (NEGATIVE); CLARITY/URINE CLEAR (CLEAR); COLOR,URINE YELLOW (YELLOW); GLUCOSE,URINE NEGATIVE (NEGATIVE); KETONES,URINE NEGATIVE (NEGATIVE); LEUKOCYTE ESTERASE ,URINE NEGATIVE (NEGATIVE); NITRITE, URINE NEGATIVE (NEGATIVE); PROTEIN URINE NEGATIVE (NEGATIVE)
[2020-07-20] MEDS: NACL 0.9% 1,000 ML IV SCH ×2 (06:24→22:52)
[2020-07-20 08:00] VITALS: BP_SYST 128
[2020-07-20] MEDS ORDERED: LEVOFLOXACIN IN DEXTROSE 5 % 100 ML IV SCH (08:00)
[2020-07-20] MEDS: metroNIDAZOLE 500 mg/NS 100 ML IV SCH ×3 (09:10→22:50)
[2020-07-20] MEDS ORDERED: HYDROcodone/ACETAMIN 7.5-325 MG TAB PO PRN (09:45)
[2020-07-20] MEDS ORDERED: ONDANSETRON HCL 4 MG/2 ML VIAL IVP PRN (09:45)
[2020-07-20] MEDS ORDERED: ZOLPIDEM TARTRATE 5 MG TABLET PO PRN (09:45)
[2020-07-20] MEDS ORDERED: ACETAMINOPHEN 500 MG TABLET PO PRN (09:45)
[2020-07-20] MEDS ORDERED: DOCUSATE SODIUM 100 MG/10 ML UDC PO PRN (09:45)
[2020-07-20 10:40] LABS: FREE T4 (FREE THYROXINE) 0.9 ng/dL (0.6-1.6); PHOSPHORUS 1.7 mg/dL (2.7-4.5); THYROID STIMULATING HORMONE 0.58 uIu/mL (0.34-4.82)
[2020-07-20 11:42] VITALS: BP_SYST 116
[2020-07-20 12:00] VITALS: BP_SYST 116
[2020-07-20] MEDS ORDERED: risperiDONE 1 MG TABLET (RisperDAL) PO ONE (12:30)
[2020-07-20] MEDS ORDERED: MULTIVITAMINS TAB 1 TABLET PO ONE (12:30)
[2020-07-20] MEDS ORDERED: LORazepam 1 MG TABLET PO PRN (12:30)
[2020-07-20] MEDS ORDERED: BENZTROPINE MESYLATE 1 MG TABLET PO ONE (12:30)
[2020-07-20] MEDS ORDERED: MEMANTINE HCL 5 MG TABLET PO ONE (12:30)
[2020-07-20] MEDS: RIVASTIGMINE 9.5 MG/24 HR PATCH.TD24 TP SCH (12:30)
[2020-07-20 16:00] VITALS: BP_SYST 150
[2020-07-20 20:00] VITALS: BP_SYST 159
[2020-07-20] MEDS: MILK OF MAGNESIA 30 ML UDC PO SCH (21:00)
[2020-07-20] MEDS: BENZTROPINE MESYLATE 1 MG TABLET PO SCH (21:00)
[2020-07-20] MEDS: ATORVASTATIN 10 MG TABLET PO SCH (21:00)
[2020-07-20] MEDS: MEMANTINE HCL 5 MG TABLET PO SCH (21:00)
[2020-07-20] MEDS: risperiDONE 1 MG TABLET (RisperDAL) PO SCH (21:00)
[2020-07-20] MEDS: LEVOFLOXACIN IN DEXTROSE 5 % 100 ML IV SCH (22:51)
[2020-07-21] VITALS: BP_SYST 133; BP_SYST 151
[2020-07-21] MEDS: metroNIDAZOLE 500 mg/NS 100 ML IV SCH ×3 (05:03→22:43)
[2020-07-21 07:21] LABS: ANION GAP 12 (5-15); CALCIUM 8.3 mg/dL (8.4-11.0); CHLORIDE 107 mmol/L (98-107); GLUCOSE 81 mg/dL (70-99); POTASSIUM 3.3 mmol/L (3.5-5.1); SODIUM SERUM 145 mmol/L (136-145); UREA NITROGEN, BLOOD 4 mg/dL (8-21)
[2020-07-21 08:00] VITALS: BP_SYST 140
[2020-07-21 08:17] LABS: BASOPHILS % (AUTO) 0.2 % (0.0-2.0); EOSINOPHILS % (AUTO) 0.6 % (0.0-4.0); HEMATOCRIT 35.3 % (36-48); HEMOGLOBIN 11.4 g/dL (12.0-16.0); LYMPHOCYTES # (AUTO) 1.4 K/uL (1.0-5.5); LYMPHOCYTES % (AUTO) 23.7 % (20.5-51.5); MEAN CORPUSCULAR HEMOGLOBIN 30 pg (27-31); MEAN CORPUSCULAR HGB CONC 32 % (32-36); MEAN CORPUSCULAR VOLUME 92 fL (79.0-98.0); MONOCYTES # (AUTO) 0.4 K/uL (0.0-1.0); MONOCYTES % (AUTO) 6.4 % (1.7-9.3); NEUTROPHILS # (AUTO) 4.2 K/uL (1.8-7.7); NEUTROPHILS % (AUTO) 69.1 % (40.0-70.0); PLATELET COUNT (AUTO) 157 K/uL (130-430); RED BLOOD CELL COUNT(AUTO) 3.85 MIL/uL (4.2-6.2); RED CELL DISTRIBUTION WIDTH 14.6 % (9.0-15.0)
[2020-07-21] MEDS ORDERED: BISACODYL 10 MG/SUPPOSITORY RC ONE (08:30)
[2020-07-21] MEDS ORDERED: MAGNESIUM CITRATE 300 ML ORAL SOLUTION PO ONE (08:30)
[2020-07-21] MEDS ORDERED: SODIUM PHOSPHATE,MONO-DIBASIC 133 ML ENEMA RC ONE (08:30)
[2020-07-21] MEDS ORDERED: POTASSIUM CHLORIDE 20 MEQ TAB.PRT.SR PO PRN (09:00)
[2020-07-21] MEDS: risperiDONE 1 MG TABLET (RisperDAL) PO SCH ×2 (09:57→21:37)
[2020-07-21] MEDS: MULTIVITAMINS TAB 1 TABLET PO SCH (09:59)
[2020-07-21] MEDS: BENZTROPINE MESYLATE 1 MG TABLET PO SCH ×2 (09:59→21:37)
[2020-07-21] MEDS: MEMANTINE HCL 5 MG TABLET PO SCH ×2 (10:00→21:38)
[2020-07-21] MEDS: RIVASTIGMINE 9.5 MG/24 HR PATCH.TD24 TP SCH (10:57)
[2020-07-21 11:27] VITALS: BP_SYST 144
[2020-07-21] MEDS: NACL 0.9% 1,000 ML IV SCH (14:50)
[2020-07-21 15:41] VITALS: BP_SYST 108
[2020-07-21 20:00] VITALS: BP_SYST 112
[2020-07-21] MEDS: LEVOFLOXACIN IN DEXTROSE 5 % 100 ML IV SCH (21:37)
[2020-07-21] MEDS: ATORVASTATIN 10 MG TABLET PO SCH (21:37)
[2020-07-21] MEDS: MILK OF MAGNESIA 30 ML UDC PO SCH (21:38)
[2020-07-22] VITALS: BP_SYST 127
[2020-07-22] MEDS: metroNIDAZOLE 500 mg/NS 100 ML IV SCH ×3 (05:22→21:24)
[2020-07-22 06:28] LABS: EOSINOPHILS # (AUTO) 0.1 K/uL (0.0-0.4); EOSINOPHILS % (AUTO) 1.1 % (0.0-4.0); HEMATOCRIT 34.2 % (36-48); HEMOGLOBIN 11.2 g/dL (12.0-16.0); LYMPHOCYTES # (AUTO) 1.6 K/uL (1.0-5.5); LYMPHOCYTES % (AUTO) 29.7 % (20.5-51.5); MEAN CORPUSCULAR HEMOGLOBIN 30 pg (27-31); MEAN CORPUSCULAR HGB CONC 33 % (32-36); MEAN CORPUSCULAR VOLUME 92 fL (79.0-98.0); MONOCYTES # (AUTO) 0.3 K/uL (0.0-1.0); MONOCYTES % (AUTO) 5.4 % (1.7-9.3); NEUTROPHILS # (AUTO) 3.5 K/uL (1.8-7.7); NEUTROPHILS % (AUTO) 63.8 % (40.0-70.0); PLATELET COUNT (AUTO) 163 K/uL (130-430); RED BLOOD CELL COUNT(AUTO) 3.74 MIL/uL (4.2-6.2); RED CELL DISTRIBUTION WIDTH 14.3 % (9.0-15.0); WHITE BLOOD COUNT (AUTO) 5.4 K/uL (4.8-10.8)
[2020-07-22 07:33] LABS: ANION GAP 10 (5-15); CALCIUM 7.6 mg/dL (8.4-11.0); CHLORIDE 110 mmol/L (98-107); CREATININE 0.68 mg/dL (0.55-1.30); GLUCOSE 81 mg/dL (70-99); POTASSIUM 3.4 mmol/L (3.5-5.1); SODIUM SERUM 146 mmol/L (136-145); UREA NITROGEN, BLOOD 8 mg/dL (8-21)
[2020-07-22 08:00] VITALS: BP_SYST 101
[2020-07-22] MEDS ORDERED: CITALOPRAM HYDROBROMIDE 20 MG TABLET PO SCH (09:00)
[2020-07-22] MEDS ORDERED: ESCITALOPRAM OXALATE 10 MG TABLET PO SCH (09:00)
[2020-07-22] MEDS: risperiDONE 1 MG TABLET (RisperDAL) PO SCH (09:19)
[2020-07-22] MEDS: D5/0.45 NS 1,000 ML IV SCH ×2 (09:19→21:00)
[2020-07-22] MEDS: MEMANTINE HCL 5 MG TABLET PO SCH ×2 (09:19→21:23)
[2020-07-22] MEDS: BENZTROPINE MESYLATE 1 MG TABLET PO SCH ×2 (09:20→21:23)
[2020-07-22] MEDS: MULTIVITAMINS TAB 1 TABLET PO SCH (09:20)
[2020-07-22] MEDS: RIVASTIGMINE 9.5 MG/24 HR PATCH.TD24 TP SCH (09:27)
[2020-07-22 11:34] VITALS: BP_SYST 119
[2020-07-22 15:28] VITALS: BP_SYST 110
[2020-07-22 20:00] VITALS: BP_SYST 143
[2020-07-22] MEDS: LEVOFLOXACIN IN DEXTROSE 5 % 100 ML IV SCH (20:32)
[2020-07-22] MEDS ORDERED: risperiDONE 1 MG TABLET (RisperDAL) PO SCH ×2 (21:00)
[2020-07-22] MEDS ORDERED: MIRTAZAPINE 15 MG TABLET PO SCH (21:00)
[2020-07-22] MEDS: ATORVASTATIN 10 MG TABLET PO SCH (21:23)
[2020-07-22] MEDS: MILK OF MAGNESIA 30 ML UDC PO SCH (21:24)
[2020-07-23 01:32] VITALS: BP_SYST 119
[2020-07-23] MEDS: metroNIDAZOLE 500 mg/NS 100 ML IV SCH (05:09)
[2020-07-23 07:39] LABS: ANION GAP 7 (5-15); CALCIUM 7.8 mg/dL (8.4-11.0); CHLORIDE 110 mmol/L (98-107); CREATININE 0.66 mg/dL (0.55-1.30); GLUCOSE 96 mg/dL (70-99); POTASSIUM 3.4 mmol/L (3.5-5.1); SODIUM SERUM 144 mmol/L (136-145); UREA NITROGEN, BLOOD 8 mg/dL (8-21)
[2020-07-23] MEDS ORDERED: MIRT-114 PO (08:55)
[2020-07-23] MEDS ORDERED: RISP1TAB7 PO (08:55)
[2020-07-23] MEDS ORDERED: RISP2TAB5 PO (08:55)
[2020-07-23] MEDS ORDERED: METR500T PO (08:55)
[2020-07-23] MEDS ORDERED: POLY17PO4 PO (08:56)
[2020-07-23] MEDS ORDERED: risperiDONE 1 MG TABLET (RisperDAL) PO SCH (09:00)
[2020-07-23] MEDS: D5/0.45 NS 1,000 ML IV SCH (09:30)
[2020-07-23 09:49] VITALS: BP_SYST 110
[2020-07-23] MEDS: BENZTROPINE MESYLATE 1 MG TABLET PO SCH (09:58)
[2020-07-23] MEDS: MEMANTINE HCL 5 MG TABLET PO SCH (09:58)
[2020-07-23] MEDS: RIVASTIGMINE 9.5 MG/24 HR PATCH.TD24 TP SCH (09:59)
[2020-07-23] MEDS: MULTIVITAMINS TAB 1 TABLET PO SCH (09:59)
[2020-07-23 11:35] VITALS: BP_SYST 134
[2020-07-23 12:16] VITALS: BP_SYST 134
== END 2020-07-23 15:20 | disposition home health service (06) | DRG 392 ==
LOC: SED 02:45 → STU 05:17
PROVIDERS: ADMIT Emergency Medicine; ATTEND Emergency Medicine
DX: K52.89 Other specified noninfective gastroenteritis and colitis (principal); E87.0 Hyperosmolality and hypernatremia; K56.41 Fecal impaction; F32.9 Major depressive disorder, single episode, unspecified; G30.9 Alzheimer's disease, unspecified; F02.80 Dementia in other diseases classified elsewhere, unspecified severity, without behavioral disturbance, psychotic disturbance, mood disturbance, and anxiety; G20 Parkinson's disease; D64.9 Anemia, unspecified; I95.9 Hypotension, unspecified; E66.9 Obesity, unspecified; E86.1 Hypovolemia; Z20.822 Contact with and (suspected) exposure to COVID-19; F41.9 Anxiety disorder, unspecified; W19.XXXA Unspecified fall, initial encounter; Y93.89 Activity, other specified; Y99.8 Other external cause status; Y92.009 Unspecified place in unspecified non-institutional (private) residence as the place of occurrence of the external cause; Z90.49 Acquired absence of other specified parts of digestive tract; Z99.3 Dependence on wheelchair; Z68.23 Body mass index [BMI] 23.0-23.9, adult
CPT/HCPCS: 36415; 71045; 74018; 76376; 80048; 80053; 80061; 81003; 82272; 82962; 83036; 83605; 83690-TC; 83735-TC; 84100-TC; 84439; 84443-TC; 84484; 85025; 85610-TC; 85730-TC; 87040-TC; 87081; 87086; 93005; 96361; 96365; 97112-GP; 99291; G0378; J1956; J3490; J7030; Q9967